=== PATIENT | male | born 1940 | race Caucasian/White ===

== ENCOUNTER 2018-08-09 06:45 | Inpatient (IN) | payer MEDICARE, OTHER ==
[~2018-08-09] VITALS: Ht 175.3 cm; Wt 78.0 kg
--- OUTSIDE RECORDS SUMMARY | ~2018-08-09 | XMS | Clinical Summary ---
Demographics + + + | Address | [address] | | | [place] [address] | + + + | Home Phone | | + + + | Preferred Language | Unknown | + + + | Marital Status | | + + + | Protestant Affiliation | 1028 | + + + | Race | Unknown | + + + | Ethnic Group | Unknown | + + + Author + + + | Author | [facility] | | | and [place] | + + + | Organization | [facility] | | | and [place] | + + + | Address | Unknown | + + + | Phone | Unavailable | + + + Support + + + + + | Name | Relationship | Address | Phone | + + + + + | Nithya Roque | ECON | [address] | | | | | [place] | | | | | [address] | | + + + + + Care Team Providers + +------+ + | Care Special Events Director Name | Role | Phone | + +------+ + PP | Unavailable | + +------+ + Allergies Not on File Current Medications Not on file Active Problems Not on file Social History + +-------+ +--------+------+ | Tobacco Use | Types | Packs/Day | Years | Date | | | | | Used | | + +-------+ +--------+------+ | Never Assessed | | | | | + +-------+ +--------+------+ + + + | Sex Assigned at | Date Recorded | | | | + + + | Not on file | | + + + Plan of Treatment + + + + + | Health Maintenance | Due Date | Last Done | Comments | + + + + + | Vaccine: | | | | | Dtap/Tdap/Td (1 - | 9 | | | | Tdap) | | | | + + + + + | Vaccine: Zoster (1 | | | | | of 2) | 0 | | | + + + + + | Vaccine: | | | | | Pneumococcal 65+ | 5 | | | | Low/Medium Risk (1 | | | | | of 2 - PCV13) | | | | + + + + + | Vaccine: Influenza | | | | | (#1) | 8 | | | + + + + + Results Not on filefrom Last 3 Months"
--- OUTSIDE RECORDS SUMMARY | ~2018-08-09 | XMS | Clinical Summary ---
Demographics + + + | Address | [address] | | | [place] [address] | + + + | Home Phone | | + + + | Preferred Language | Unknown | + + + | Marital Status | Single | + + + | Denominational Affiliation | Unknown | + + + | Race | Unknown | + + + | Ethnic Group | Other Race | + + + Author + + + | Author | NON REVENUE LOCATIONS | + + + | Organization | NON REVENUE LOCATIONS | + + + | Address | Unknown | + + + | Phone | Unavailable | + + + Support + + +---------+ + | Name | Relationship | Address | Phone | + + +---------+ + | NONE,NONE | ECON | Unknown | Unavailable | + + +---------+ + Care Team Providers + +------+ + | Care Electronic Pagination System Operator Name | Role | Phone | + +------+ + PP | Unavailable | + +------+ + Source Comments FEI is fully live on both [facility] and [facility] In[facility] Allergies Not on File Current Medications Not [...] | + + + + + | Pneumococcal (Adult) | | | | | (1 of 2 - PCV13) | 5 | | | + + + + + | Influenza (Flu) | | | | | vaccination (#1) | 8 | | | + + + + + Results Not on filefrom Last 3 Months Insurance + +--------+ +--------+ + + | Payer | Benefi | Subscriber | Type | Phone | Address | | | t Plan | ID | | | | | | / | | | | | | | Group | | | | | + +--------+ +--------+ + + | MEDICARE | MEDICA | xxxxxxxxxx | Medica | +- | [address] | | | RE A & | | re | [phone] | [place] [address] | | | B | | | | | + +--------+ +--------+ + + | JOON | RAJWINDER | [phone] | Fern[place] | [phone] | | | [place] | | ity | [phone] | | | | | | | | | | | HEALTH | | | | | | | NET | | | | | + +--------+ +--------+ + + + +--------+ +--------+-------+ + | Guarantor Name | Accoun | Relation to | Date | Phone | Billing Address | | | t Type | Patient | of | | | | | | | | | | + +--------+ +--------+-------+ + | CHRIS GUSTAFSON | Person | Self [birth year] | [address] | | | al/Fam | | 1941 | | [place] [address] | | | [place] | | | | | + +--------+ +--------+-------+ +"
--- OUTSIDE RECORDS SUMMARY | ~2018-08-09 | XMS | Encounter Summary ---
Demographics + + + | Address | [address] | | | [place] [address] | + + + | Home Phone | | + + + | Preferred Language | Unknown | + + + | Marital Status | | + + + | Zoroastrian Affiliation | 1028 | + + + | Race | Unknown | + + + | Ethnic Group | Unknown | + + + Author + + + | Author | [facility] | + + + | Organization | [facility] | + + + | Address | Unknown | + + + | Phone | Unavailable | + + + Support + + + + + | Name | Relationship | Address | Phone | + + + + + | Nithya Roque | ECON | [address] | | | | | [place] | | | | | [address] | | + + + + + Care Team Providers + +------+ + | Care Sand Polisher Name | Role | Phone | + +------+ + | Mary Jane Isabel MD | PCP | | + +------+ + Reason for Referral Consultation (Routine) + + + + + + + | Status | Reason | Specialty | Diagnoses / | Referred By | Referred To | | | | | Procedures | Contact | Contact | + + + + + + + | Authorized | Specialty | Sleep | Diagnoses | Mary, | Lab, [facility] | | | Services | Medicine | Obstructive | Ibrahima Rojo | [facility] | | | Required | | sleep apnea | [address] | Sleep | | | | | syndrome in | [address] | Disorders | | | | | adult | Kasi F | [facility] | | | | | | [place], [place] | [facility] | | | | | | [address] | [address] | | | | | | Phone: | [address] | | | | | | [phone] | [place] | | | | | | Fax: | [address] | | | | | | [phone] | Phone: | | | | | | | [phone] | | | | | | | Fax: | | | | | | | [phone] | + + + + + + + Reason for Visit + + + | Reason | Comments | + + + | Follow-up | doppler done | + + + Encounter Details +--------+---------+ + + + | Date | Type | Department | Care Team | Description | +--------+---------+ + + + | 01/10/ | Office | [facility] | Ibrahima Hernandez Darrel, | Cerebrovascular | | 2019 | Visit | Cardiology [place] | [address] | accident (CVA) due | | | | [address] | [place], | to occlusion of | | | | [place], [place] | [place] [address] | right cerebellar | | | | [address] | [phone] | artery (HCC) | | | | [phone] | | (Primary Dx); | | | | | | Persistent atrial | | | | | | fibrillation (HCC); | | | | | | Acute [...] | | | | | | emphysema (HCC); | | | | | | Asymptomatic | | | | | | bilateral carotid | | | | | | artery stenosis | +--------+---------+ + + + Social History + +-------+ [...] + + + as of this encounter Last Filed Vital Signs + + + + | Vital Sign | Reading | Time Taken | + + + + | Blood Pressure | 134/56 | 06/02/2018 11:29 AM PST | + + + + | Pulse | 78 | 06/02/2018 11:29 AM PST | + + + + | Temperature | - | - | + + + + | Respiratory Rate | - | - | + + + + | Oxygen Saturation | 96% | 06/02/2018 11:29 AM PST | + + + + | Inhaled Oxygen | - | - | | Concentration | | | + + + + | Weight | 79.2 kg (174 lb 8 | 06/02/2018 11:29 AM PST | | | oz) | | + + + + | Height | 175.3 cm (5' 9") | 06/02/2018 11:29 AM PST | + + + + | Body Mass Index | 25.77 | 06/02/2018 11:29 AM PST | + + + + in this encounter Progress Notes Ibrahima Hernandez MD - 06/02/2018 11:15 AM PSTFormatting of this note may be different from the original. Subjective: Patient ID: Bharat Roque is a 77 y.o. male. HPI The following portions of the patient's history were reviewed and updated as appropriate an d is available elsewhere in the record: allergies, current medications, past family history, past medical history, past social history, past surgical history and problem list. Mr. Roque, accompanied by his , came to the office today for a follow-up appointment for his chronic diastolic heart failure, now persistent AFib, which likely caused his CVA. He was admitted to [facility] 02/23/18, after developing difficulty walking , veering to the right, and speech difficulties, having a hard time putting sentences togeth er that began days prior to that, 02/21/18, but only went for medical attention after 2 days, as it was getting worse. A brain CT, later an MRA showed a right cerebellar infarct consis tent with an acute event. His echocardiogram was relatively unremarkable. His EKG initiall y showed sinus rhythm, but a repeat tracing 02/24/18 showed paroxysmal atrial fibrillation. He was started on Eliquis and digoxin for rate control. He feels he has been in atrial fibr illation since then, feeling like "a butterfly" is in his chest. It has been noted on his c ardiac rehab sessions as well. He had had no previous palpitations before the stroke, since his atrial flutter ablation in 2008, which is why I had taken him off the flecainide in Nov, when he first came to me. It is not clear if this allowed the atrial fibrillation to occ ur or not, but he was started back on it. He did not think it made any difference, and fee ls it is "continuous", but he doesn't feel it anymore, and stopped the flecainide on his own .years that his atrial fibrillation is persistent now, but since he is asymptomatic and the rate is controlled, and he is on Eliquis, further attempts to restore him to sinus rhythm ar e unlikely to be successful, and we will accept this. His shortness of breath has resolved. There is no chest pain or pressure. He had only min or CAD on his recent cardiac cath 12/30/17. He felt better when he was on furosemide, and was restarted. A BNP was not done (although it was ordered), but his chest x-ray 03/24/18 showe d no pulmonary edema. Cardiomegaly was reported. PFTs 08/17/17 showed evidence of a mild obstructive defect, with no significant bronchodilat or response, consistent with emphysema. He has a history of exposure to agent orange and a [id number]-dgsm smoking history, even though he quit 25 years ago. He had a pulmonary evaluati on with Dr. Patel in February, and she did not think he had significant COPD. He was refe rred for a sleep study, as his review of systems indicated he may have obstructive sleep hospital superintendent ea syndrome, still pending. A second referral was sent to the [facility] sleep Ce nter. 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 No dizziness, lightheadedness. He has left renaldo-auricular numbness following removal of a neuroma years ago, tingling, paresthesias. He has an essential, familiar tremor of the left hand (can control it somewhat), no longer in the right hand following gammaknife surge ry 2016. -- MRA (02/24/18 - [facility]): right cerebellar infarct, mild chronic ischemic disease, atrophy -- CT (02/23/18 - [facility]): Right acute cerebellar infarct with encephalomalacia EYES: No amaurosis, diplopia, recent visual changes, cataracts or glaucoma. He needed blue samantha for Exophthalmous in the past ENT: No hearing loss, tinnitus, epistaxis, dysphagia ENDOCRINE: No history of diabetes. Has a history of Grave's Disease, initially had Hypert hyroidism, with residual Hypothyroidism following treatment with radioactive Iodine, no othe r endocrine problems. No excessive hunger, thirst. PULMONARY/SLEEP: Agent [place] exposure, 1970s. c/o Dyspnea on Exertion, denies orthopnea, paroxysmal nocturnal dyspnea. No history of asthma, but seems to have COPD/Emphysema (CXR 3 /19/18 showed hyperinflation and flattening of the diaphragms consistent with emphysematous changes). Community-acquired Pneumonia 3x. His notes loud snoring and apnea, but does have daytime somnolence. Sleep is usually refreshing. -- PFTs (08/17/17): FEV1 71%, normal FVC and minimal bronchodilator response, reduced diffus ion capacity. TLC at lower limits of normal, elevated residual volume, consistent with mild obstructive disease with minimal bronchodilator response CARDIOVASCULAR: He has had noncardiac chest pain in 2013, has chest pain/pressure with exe rtion since 08/08. No history of obstructive CAD. He had evidence of Congestive Heart Fail ure 08/07/17 (BNP 566, CXR showed "cardiogenic edema"). He has a history of Paroxysmal Atria l Flutter, underwent an Ablation in 2008. No palpitations since then. He had Paroxysmal Atri al Fibrillation 02/24/18. No history of a heart murmur, only has mild MS, denies any h/o rheu matic fever as a presence of mitral stenosis suggests that he did at some point in the past. He has Essential Hypertension, Hyperlipidemia. No edema, no claudication symptoms. No h/ o an AAA. -- Carotid U/S (05/25/18): 16-49% ICA stenoses bilaterally -- Echo (02/23/18): EF > 70%, grade 2 diastolic . RV-normal. Mild LAE, mild MR, no MS, mild TR, RVSP 35.2 mm Hg, trace PI -- Cardiac Cath (12/30/17): LM-normal. LAD-mild diffuse disease. LCx-Mall, nondominant. RCA- mild prox diffuse disease, distal moderate, PDA-large vessel, moderate proximal and mid segm ent disease, no change from 2014 -- Lexiscan Cardiolite Stress Test (03/11/18): moderately abnormal, moderate risk study, wi th mild ischemia in a rather extensive territory, encompassing the anterolateral, lateral, a nd inferolateral segments. This is suggestive of possible 2-vessel CAD, EF 65% -- Echo (08/09/17): TDS, Definity used, EF > 70%, N2 diastolic dysfunction, normal RV size, function on limited views. Mild MS, MVA 1.7 cm, peak/mean gradients 11/4 mmHg, trace MR, TR -- Cardiac Cath (09/29/13): LVEDP-31 mmHg. LM-normal. LAD-mild luminal irregularities and c alcification in the proximal-mid segments (to my review, 50% stenosis). LCx-congenitally sm all, consisting of 1 small OM. Large, dominant RCA with mild calcifications and LIs, LV sys tolic function normal -- Lipid Panel (02/24/18-on atorvastatin 20 mg): TC-99, LDL-50, HDL-25, TG-118 // ( 8): TC-143, LDL-74, HDL-42, TG-139 // (06/20/15): TC-124, LDL-51, HDL-30, TG-212 GASTROINTESTINAL: Frequent belching. No recent abdominal pain, nausea, vomiting or diarrhe a. Denies PUD, melena, hematochezia, hepatitis. RENAL/: No history of kidney disease. No dysuria, hematuria, but has BPH with urinary u rgency at times, no hesitancy or nocturia. HEMATOLOGY/ONCOLOGY: No h/o bleeding disorders, DVT, PE. He notes easy bruisability and bleeding. No history of anemia, transfusions. No history of cancer. MUSCULOSKELETAL: Gout. No myalgias, has Osteoarthritis of his spine, no arthralgias. No h istory of rheumatologic or autoimmune diseases. CUTANEOUS: No rashes, pruritus, lesions. PSYCHIATRIC: No history of depression, anxiety or other psychiatric problems. Past Medical History Diagnosis Date Agent orange exposure Atrial fibrillation (HCC) 02/24/2018 Persistent, [id number] VASc 5 BPH (benign prostatic hyperplasia) Cerebrovascular accident (CVA) (HCC) 02/21/2018 right cerebellar CVA Chronic obstructive pulmonary disease (HCC) Congestive heart failure (HCC) Diastolic heart failure Coronary artery disease 09/29/2013 mild, non-obstructive CAD Hyperlipidemia Hypertension Hypothyroidism 1994 Grave's disease, first Hyperthyroidism, now residual Hypothyroidism following treatment radioactive Iodine S/P ablation of atrial flutter 2008 Roger Jimenez MD ([place]) Past Surgical History Procedure Laterality Date BRAIN SURGERY 12/2016 gamma knife for tremors ([facility]) CARDIAC ELECTROPHYSIOLOGY MAPPING AND ABLATION 2008 Roger Jimenez MD ([place]) EYE MUSCLE SURGERY due to Grave's disease FINGER FRACTURE SURGERY HERNIA REPAIR x 3, 2 left inguinal, 1 right inguinal herniorrhaphies NEUROMA SURGERY left side of neck TIBIA FRACTURE SURGERY ORIF, left tibia, age 16 tremor essential Family History Problem Relation Age of Onset Coronary art dis Brother 68 [place] Hypertension Brother Heart disease Paternal Uncle Heart disease Paternal Uncle Heart disease Paternal Uncle Heart failure Mother Anemia Mother Hypertension Mother Diabetes type II Mother Coronary art dis Mother 3-v CABG in her 70s Stroke Father 74 Social History Substance Use Topics Smoking status: Former Smoker Packs/day: 1.00 Years: 35.00 Quit date: 12/01/1992 Smokeless tobacco: Never Used Alcohol use 0.0 oz/week 1 - 2 Glasses of wine, 1 - 2 Cans of beer, 1 - 2 Shots of liquor per week Comment: occasionally Allergies Allergen Reactions Carvedilol Other (See Comments) "olu horses" in legs Levaquin [Levofloxacin] Other (See Comments) Ruptured tendon Current Outpatient Prescriptions: allopurinol (ZYLOPRIM) 100 MG tablet, Take 100 mg by mouth daily., Disp: , Rfl: atorvastatin (LIPITOR) 20 MG tablet, Take 40 mg by mouth nightly., Disp: , Rfl: digoxin (LANOXIN) 0.25 MG tablet, Take 0.25 mg by mouth daily., Disp: , Rfl: ELIQUIS 5 MG tablet, Take 5 mg by mouth 2 (two) times daily., Disp: , Rfl: finasteride (PROSCAR) 5 MG tablet, Take 5 mg by mouth daily., Disp: , Rfl: fish oil-omega-3 fatty acids 1000 MG capsule, Take 1 g by mouth daily., Disp: , Rfl: furosemide (LASIX) 20 MG tablet, Take 1 tablet by mouth daily., Disp: 90 tablet, Rfl: 3 Multiple Vitamin (MULTIVITAMIN) tablet, Take 1 tablet by mouth daily., Disp: , Rfl: nitroGLYCERIN (NITROSTAT) 0.4 MG SL tablet, Place 1 tablet under the tongue every 5 (f abbey) minutes as needed for Chest pain., Disp: 90 tablet, Rfl: 2 omeprazole (PRILOSEC) 40 MG capsule, Take 1 capsule by mouth every morning before ross kfast., Disp: 30 capsule, Rfl: 11 tamsulosin (FLOMAX) 0.4 MG capsule, Take 1 capsule by mouth daily., Disp: , Rfl: TIROSINT 75 MCG CAPS, Take 75 mcg by mouth daily. Take with 88 mcg capsules for a tota l of 163 mcg daily., Disp: , Rfl: TIROSINT 88 MCG CAPS, Take 88 mcg by mouth daily. Take with 75 mcg capsules for a tota l of 163 mcg daily., Disp: , Rfl: Objective: Physical Exam BP 134/56 (BP Location: Left upper arm, Patient Position: Sitting) | Pulse 78 | Ht 1.753 m (5' 9") | Wt 79.2 kg (174 lb 8 oz) | SpO2 96% | BMI 25.77 kg/m GENERAL: Well developed, well nourished, in no distress. Appears approximately stated age . HEENT: Normocephalic, atraumatic. EYES: Exophthalmos. PERRL, sclerae anicteric, no xanthelsasmas MOUTH: Oral mucosae moist, dentition adequate, no lesions noted NECK: No JVD, lymphadenopathy, thyromegaly, bruits. Carotid pulses are 2+ bilaterally LUNGS: Clear bilaterally, with no rales, rhonchi or wheezing noted, respirations unlabored HEART: Nondisplaced PMI, regular rate and rhythm, S1, S2 normal. No murmurs, rubs or gall ops noted. ABDOMEN: Soft, nontender, no organomegaly, masses or bruits. Bowel sounds are normal in a ll 4 quadrants. The abdominal aortic pulsation is not palpable. EXTREMITIES: No edema. Radial pulses 2+ bilaterally. Femoral pulses are 2+ bilaterally wi thout bruits. DP and PT pulses are 2+ bilaterally. SKIN: Warm and dry, capillary refill is normal, no lesions. NEUROLOGIC: Awake, alert and oriented x 3. Mild expressive aphasia. No focal motor defici ts. He has a marked left hand tremor. There is a minimal tremor on the right side. PSYCHIATRIC: Appropriate, affect appears normal Assessment and Plan: Bharat was seen today for follow-up. Cerebrovascular accident (CVA) due to occlusion of right cerebellar artery (HCC) Persistent atrial fibrillation (HCC) Acute on chronic diastolic congestive heart failure (HCC) S/P ablation of atrial flutter Essential hypertension SOB (shortness of breath) on exertion Obstructive sleep apnea syndrome in adult Centrilobular emphysema (HCC) Asymptomatic bilateral carotid artery stenosis in this encounter Plan of Treatment +--------+---------+ + + + | Date | Type | Specialty | Care Team | Description | +--------+---------+ + + + | 11/22/ | Office | Cardiology | Ibrahima Hernandez, | | | 2019 | Visit | | MD [address] | | | | | | [place], | | | | | | [place] [address] | | | | | | [phone] | | | | | | | | +--------+---------+ + + + + +--------+ + + | Name | Priori | Associated Diagnoses | Order Schedule | | | ty | | | + +--------+ + + | Ambulatory referral to Sleep | Routin | Obstructive sleep | Ordered: 06/02/2018 | | Studies | e | apnea syndrome in | | | | | adult | | + +--------+ + + as of this encounter Visit Diagnoses + + | Diagnosis | + + | Cerebrovascular accident (CVA) due to occlusion of right cerebellar artery (HCC) - | | Primary | + + | Persistent atrial fibrillation (HCC) | + + | Atrial fibrillation | + + | Acute on chronic diastolic congestive heart failure (HCC) | + + | Acute on chronic diastolic heart failure | + + | S/P ablation of atrial flutter | + + | Other postprocedural status | + + | Essential hypertension | + + | Unspecified essential hypertension | + + | SOB (shortness of breath) on exertion | + + | Shortness of breath | + + | Obstructive sleep apnea syndrome in adult | + + | Obstructive sleep apnea (adult) (pediatric) | + + | Centrilobular emphysema (HCC) | + + | Other emphysema | + + | Asymptomatic bilateral carotid artery stenosis | + + | Occlusion and stenosis of multiple and bilateral precerebral arteries without mention | | of cerebral infarction | + +
--- OUTSIDE RECORDS SUMMARY | ~2018-08-09 | XMS | Encounter Summary ---
Demographics + + + | Address | [address] | | | [place] [address] | + + + | Home Phone | | + + + | Preferred Language | Unknown | + + + | Marital Status | | + + + | Restoration Affiliation | 1028 | + + + | Race | Unknown | + + + | Ethnic Group | Unknown | + + + Author + + + | Author | [facility] | + + + | Organization | [facility] | + + + | Address | Unknown | + + + | Phone | Unavailable | + + + Support + + + + + | Name | Relationship | Address | Phone | + + + + + | Nithya Roque | ECON | [address] | | | | | [place] | | | | | [address] | | + + + + + Care Team Providers + +------+ + | Care Purchase Analyst Name | Role | Phone | + [...] | | | | | | [place] | | | | | | [address] | | | | | | [phone] | | | +--------+ + + + [...] | | | | | | [place] [address] | | | | | | [phone] | | | | | | | | +--------+---------+ + + + as of this encounter Visit Diagnoses Not on filein this encounter"
--- OUTSIDE RECORDS SUMMARY | ~2018-08-09 | XMS | Encounter Summary ---
Demographics + + + | Address | [address] | | | [place] [address] | + + + | Home Phone | | + + + | Preferred Language | Unknown | + + + | Marital Status | | + + + | Baptism Affiliation | 1028 | + + + | Race | Unknown | + + + | Ethnic Group | Unknown | + + + Author + + + | Author | [facility] | + + + | Organization | [facility] | + + + | Address | Unknown | + + + | Phone | Unavailable | + + + Support + + + + + | Name | Relationship | Address | Phone | + + + + + | Nithya Roque | ECON | [address] | | | | | [place] | | | | | [address] | | + + + + + Care Team Providers + +------+ + | Care Caption Writer Name | Role | Phone | + +------+ + | Mary Jane Isabel MD | PCP | | + +------+ + Reason for Visit +--------+ + | Reason | Comments | +--------+ + | Other | [facility] discharge summary and imaging | | | reports 02/2018 | +--------+ + Encounter Details +--------+ + + + + | Date | Type | Department | Care Team | Description | +--------+ + + + + | 06/28/ | Documentati | Johanna | Sabrina Cope, | Other Gum[facility] Rowe | | 2019 | on Only | [facility] | [place] | [facility] | | | | [address] | | discharge summary | | | | [place] | | and imaging reports | | | | [address] | | 02/2018) | | | | [phone] | | | +--------+ + + + [...] | | | | | | [place] [address] | | | | | | [phone] | | | | | | | | +--------+---------+ + + + as of this encounter Visit Diagnoses Not on filein this encounter"
--- OUTSIDE RECORDS SUMMARY | ~2018-08-09 | XMS | Encounter Summary ---
Demographics + + + | Address | [address] | | | [place] [address] | + + + | Home Phone [...] + | Author | [facility] | + + + | Organization | [facility] | + + + | Address | Unknown | + + + | Phone | Unavailable | + + + Support + + + + + | Name | Relationship | Address | Phone | + + + + + | Nithya Roque | ECON | [address] [facility] | | | | | [place] | | | | | [address] | | + + + + + Care Team Providers + +------+ + | Care Food Checker Name | Role | Phone | + +------+ + | Mary Jane Isabel MD | PCP | | + +------+ + Reason for Visit + + + | Reason | Comments | + + + | Neurologic Problem | Evalution for cerebral infarction | + + + Consult and Treat (Routine) + +--------+ + + + + | Status | Reason | Specialty | Diagnoses / | Referred By | Referred To | | | | | Procedures | Contact | Contact | + +--------+ + + + + | Authorized | | Neurology | Diagnoses | Maame, | Gage, | | | | | Other | Mary Jane Hernandez, | MD Dottie | | | | | cerebral | [address] | [address] | | | | | infarction | [address] | [address] | | | | | ([facility]) | [place], | [place], [place] | | | | | | [place] [address] | [address] Phone: | | | | | | Phone: | [phone] | | | | | | [phone] | Fax: | | | | | | Fax: | [phone] | | | | | | [phone] | | + +--------+ + + + + Encounter Details +--------+---------+ + + + | Date | Type | Department | Care Team | Description | +--------+---------+ + + + | 06/23/ | Office | [facility] | Dottie Almonte, | Ischemic stroke | | 2019 | Visit | [facility] | MD [address] | ([facility]) (Primary Dx); | | | | [address] | [facility] [place] | Imbalance | | | | [place], [place] | [address] | | | | | [address] | | | | | | [phone] | | | +--------+---------+ + + + Social History [...] + + in this encounter Progress Notes Dottie Almonte MD - 06/23/2018 11:30 AM PSTFormatting of this note may be different from the original. Subjective: Patient ID: Bharat Roque is a 77 y.o. male. HPI Thank you for asking us to participate in your patient's care. As you know, Bharat Roque is a 77 y.o. right handed male who presents today for ev aluation after a stroke. New vitis. Previous neurologist: Does not remember the name of his neurologist. S/p Gamma knife for tremor. - Onset, context and course: 02/21/2018; sudden onset of imbalance and poor coordination, th is got worse over the next few days to include dysphasia, with no new weakness or numbness ( chronic weakness of right arm due to shoulder pain). He was on ASA. This was changed to ASA and Plavix then to Eliquis due to A-Fib per patient report / cardiology note. - Localization, quality and severity: As above. - Duration: Was constant. He is doing better, balance is back to normal and speech is better but still at times hard to remember certain words. Currently he is on statin and Eliquis. Echo from 02/23/18: 1. No source of emboli or other structural/functional cardiac abnormalities seen that would suggest a cardiac cause of his CVA. 2. Left ventricular systolic function is hyperdynamic with an estimated EF of >70%. 3. Pseudonormal LV diastolic filling pattern, consistent with elevated LA pressure and mode rate dysfunction (Grade II). 4. The right ventricle is normal in size and function. 5. The left atrium is mildly enlarged. 6. No significant valvular abnormalities are noted. 7. There are mild changes noted in comparison to the previous echocardiographic study, done 08/09/17, as noted below. Echo from 03/15/18: 1. Left ventricular systolic function is hyperdynamic with an estimated EF of >70%. 2. The right ventricle is normal in size and function. 3. The left atrium is mildly enlarged. 4. There is mild mitral stenosis. 5. There are minor changes noted in comparison to previous echocardiographic studies, done 02/23/18 and 08/09/17. Carotid US from May, 2018: 1. Mild disease of the right internal carotid artery. 2. Mild disease of the left internal carotid artery. EKG and telemetry: Unavailable. Brain imaging: per cardiology not: MRI showed right cerebellar stroke. EKG trace from 02/24/18 >> A-fib. Past Medical History Diagnosis Date Agent orange exposure Atrial fibrillation (HCC) 02/24/2018 Persistent, [id number] VASc 5 BPH (benign prostatic hyperplasia) Cerebrovascular accident (CVA) (HCC) 02/21/2018 right cerebellar CVA Chronic obstructive pulmonary disease (HCC) Congestive heart failure (HCC) Diastolic heart failure Coronary artery disease 09/29/2013 mild, non-obstructive CAD Hyperlipidemia Hypertension Hypothyroidism 1994 Grave's disease, first Hyperthyroidism, now residual Hypothyroidism following treatment wi radioactive Iodine S/P ablation of atrial flutter 2008 Roger Jimenez MD ([place]) Family History Problem Relation Age of Onset Coronary art dis Brother 68 [place] Hypertension Brother Heart disease Paternal Uncle Heart disease Paternal Uncle Heart disease Paternal Uncle Heart failure Mother Anemia Mother Hypertension Mother Diabetes type II Mother Coronary art dis Mother 3-v CABG in her 70s Stroke Father 74 Social History Social History Marital status: Spouse name: N/A Number of children: N/A Years of education: N/A Occupational History 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[employer], 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 Review of Systems The patient reports activity change, appetite change, fatigue, tinnitus, visual disturbance , and bruises. All other system were reviewed and are negative. Objective: Physical Exam Vitals: Vitals: 06/23/18 1123 BP: 155/72 Pulse: 69 SpO2: 97% General: Well developed, in no acute distress Neck: Supple, unable to appreciate bruits. Heart: S1, S2. Peripheral vascular system: No swelling by observation with palpable pulse in upper extremi ties. Detailed Neurologic Exam Speech: Is normal; fluent and spontaneous with normal naming and repetition. Cognition: The patient is oriented to person, place, and time; recent and remote memory is intact with normal attention span, concentration, and fund of knowledge. Cranial Nerves: At this time, the pupils are equal, round, and reactive to light. Visual fi elds are full to finger confrontation. Extraocular movements are intact. Trigeminal sensatio n is intact and the muscles of mastication are normal. The face is symmetric. Hearing is sym metric bilaterally to fingers rubbing. The palate elevates in the midline. Voice is normal. Shoulder shrug is normal. The tongue has normal motion without fasciculations. Coordination: Normal finger to nose. Gait: Hard to tandem. Observation: No asymmetry, or involuntary movements noted. Strength: Strength is 5/5 in the upper and lower limbs. Light Touch: Normal light touch sensation in upper and lower extremities. DTR's: Deep tendon reflexes in the upper extremities and knees are normal bilaterally. Assessment and Plan: Reason for visit: Evaluation and management of stroke. With: . Impression: 1- Imbalance, due to right cerebellar stroke in the setting of A-fib. 2- Tremor, managed by neurology in [place]. 3- HTN, and A-fib on AC. Plan: 1- The differential diagnosis and the necessary work up were discussed with the patient in detail. 2- I will request the previous work up (D/C summary,imaging and EKG) to be sent to my offic e for review. I reviewed the available medical record and summarized it in my HPI. 3- We discussed the safety issues in detail including safe environment. No falls. 4- For #1, agree with AC, and statin for secondary prophylaxis. Good control of risk factor s. 5- For #2, he will follow with his neurologist in [place] in Jun, 2018. 6- I covered with the patient all side effects of the regimen and the interaction with othe r medications (risk of bleeding). Patient understands and agrees to proceed with the regimen / plan. 7- Risk factors modification per PCP and cardiology. The patient was instructed to follow u p with PCP in regards to the non neurological symptoms listed on the review of symptoms. 8- Patient would like to follow with his PCP and to RTC as needed. However, patient was ins tructed to call with any concern, if symptoms are worsening, not improving or if any side ef fects related to regimen. in this encounter Plan of Treatment +--------+---------+ + + + | Date | Type | Specialty | Care Team | Description | +--------+---------+ + + + | 11/22/ | Office | Cardiology | Ibrahima Hernandez, | | | 2019 | Visit | | MD [address] | | | | | | [place], | | | | | | [place] [address] | | | | | | [phone] | | | | | | | | +--------+---------+ + + + as of this encounter Visit Diagnoses + + | Diagnosis | + + | Ischemic stroke (HCC) - Primary | + + | Imbalance | + + | Abnormality of gait | + +
--- OUTSIDE RECORDS SUMMARY | ~2018-08-09 | XMS | Clinical Summary ---
Demographics + + + | Address | [address] | | | [place] [address] | + + + | Home Phone | | + + + | Preferred Language | Unknown | + + + | Marital Status | | + + + | Congregation Affiliation | 1028 | + + + | Race | Unknown | + + + | Ethnic Group | Unknown | + + + Author + + + | Author | [facility] [employer] | + + + | Organization | [facility] [employer] [facility] | + + + | Address | Unknown | + + + | Phone | Unavailable | + + + Support + + + + + | Name | Relationship | Address | Phone | + + + + + | Nithya Roque | ECON | [address] | | | | | [place] | | | | | [address] | | + + + + + Care Team Providers + +------+ + | Care Animal Skinner Name | Role | Phone | + [...] + + + | Cerebrovascular accident (CVA) ([facility]) | 02/21/2018 | + [...] | Anh Dodd, | Other (EKG from [facility] | | 2019 | on Only | | [place] | Leoncio) | +--------+ + + + + | 06/28/ | Documentati | | Sabrina Cope, | Other (On License Of [facility] | | 2018 | on Only | | [place] | [facility] | | | | | | discharge summary | | | | | | and imaging reports | | | | | | 02/2018) | +--------+ + + + + | 06/23/ | Office | | Dottie Almonte, | Ischemic stroke | | 2018 | Visit | | MD | ([facility]) (Primary Dx); | | [...] | | | | | | artery ([facility]) | | | | | | (Primary Dx); | | | | | | Persistent atrial | | | | | | fibrillation ([facility]); | | | | [...] | | | | | | emphysema ([facility]); | | | | [...] Coronary art dis | Brother | | [place] | + + +------+ + | Hypertension [...] | | | | | | [place] [address] | | | | | | [phone] | | | | | | | [...] VERT PS: 57.25 cm/s | | | Legal Investigator: APRIL Authenticated by: JEEVAN VIIERA MD Report | | | Date/Time: -- 92_[id number]:40:21 | | + + + + + | Procedure Note | + + | Case, Rad Results In - 05/25/2018 8:40 PM PST Patient Name: Ronnie ROQUE of | | : 1940Accession: [id number] Physician: JEEVAN VIEIRA MD | | INDICATIONS [...] JEEVAN VIEIRA | | MDReport Date/Time: -- 81_[id number]:40:21IMPRESSION:1. Mild disease of the right | | [...] |VERT PS: 57.25 cm/s | | | |Legal Investigator: DH | |Authenticated by: JEEVAN VIEIRA MD | |Report Date/Time: -- 11_[id number]:40:21 | | | |IMPRESSION: | |1. Mild disease of the right internal carotid artery. | |2. Mild disease of the left internal carotid artery. | + + + + + + + | Performing | Address | City/State/Zipcode | Phone Number | | Organization | | | | + + + + + | [facility] | [address] | [place] [address] | | + + + + + [...] +------+-------+ + | MEDICARE | MEDICA | [id number] | | | [address] | | | RE | | | | [place] [address] | | | IP-OP | | | | | + +--------+ +------+-------+ + | - WPS - | TRICAR | [id number] | | | [address] [address] | | | [place] | | | | [place] | | | LIFE | | | | [address] | + +--------+ +------+-------+ + + +--------+ +--------+ + + | Guarantor Name | Accoun | Relation to | Date | Phone | Billing Address | | | t Type | Patient | of | | | | | | | | | | + +--------+ +--------+ + + | BHARAT ROQUE | Person | Self [birth year] Home: | [facility] | | [place] | al/Fam | | 1941 | [phone] | [address] [place], | | | [place] | | | [address] | [place] [address] | + +--------+ +--------+ + +
[~2018-08-09 06:45] MED LIST: ALLOPURINOL100 MG PO; DIGOXIN250 MCG PO; ELIQUIS5 MG PO; FISH OIL 1,0001 EAC3 PO; FUROSEMIDE20 MG PO; LEVOTHYROXINE150 MCG PO; LEVOXYL75 MCG PO; LIPITOR20 MG PO; MULTIVITAMINS1 EAC8 PO; NITROGLYCERIN0.4 MG SL; PROSCAR5 MG PO; RANITIDINE HCL150 MG PO; TAMSULOSIN HCL0.4 MG PO
--- NOTE | 2018-08-09 12:53 | NUR ---
08/09/18 1253 Sheets,Fang 1239 PT ARRIVED TO PACU ON 8L VIA MASK, RESP EVEN AND UNLABORED. PT REACTIVE TO TACTILE STIMULI AND DENIES PAIN. CRITICAL CARE EDUCATOR NOTED ELEVATED HR, 87-120. 1246 PT CONTINUES TO WAKE OFF AND ON. O2 MASK REMVOED. PT REACTIVE TO VERBAL STIMULI AND PT DENIES NAUSEA AND PAIN. PT REPORTS NORMAL FEELING IN HAND. RN ENCOURAGES DEEP BREATHING. HR 75-95.
--- NOTE | 2018-08-09 14:29 | NUR ---
PT TO FLOOR VIA STRETCHER WITH KELIN BONILLA. PT AWAKE AND ABLE TO SCOOT SELF TO BED. GIVEN WATER AND JELLO. NO NAUSEA OR PAIN ATT. CMS INTACT. PT WIGGLING FINGERS. AND DAUGHTER IN ROOM. VS STABLE.
--- NOTE | 2018-08-09 14:31 | NUR ---
PT IS ALERT, ORIENTED AND SUPPORTED BY HIS . PT IS [place], USUALLY WOULD LOOK TO FOR HELP IF HE DID NOT HEAR. BOTH PLEASANT, HAD FEW QUESTIONS. OR STAFF NEED TO SEE PT, EXTENDED A BLESSING WILL FOLLOW NEEDED
--- NOTE | 2018-08-09 15:01 | NUR ---
VITALS TAKEN AND STABLE. CRYO CUFF TO RIGHT SHOULDER. PT REPORTS SMALL AMOUNT OF TINGLING TO RIGHT FINGERS. PULSE +2, EXTREMITY WARM, PT ABLE TO WIGLE FINGERS. DENIES PAIN AT THIS TIME. DRESSING WITH SOME OLD SHADOWING. SCD'S IN PLACE. LR AT 125ML/HR INFUSING. PT IS RESTING NOW WITH EYES CLOSED. CALL LIGHT IN REACH. DENIES NEEDS.
--- NOTE | 2018-08-09 15:55 | NUR ---
PT LYING IN BED WITH HOB ELEVATED, EYES CLOSED, WAKES TO VERBAL STIMULI. ASSESSMENT SAME PREVIOUS, CRYO CUFF IN PLACE, DRESSING C/D/I, SCD'S IN PLACE, PT DENIES PAIN, CALL LIGHT IN REACH.
--- NOTE | 2018-08-09 16:55 | NUR ---
VITAL SIGNS TAKEN, WNL. DENIES PAIN/N/V. ABLE TO WIGGLE FINGERS. REPORTS STILL SOME TINGLING. PULSE +1 EXTREMITY WARM CAP REFILL 2 SEC. DINNER ORDERED. CALL LIGHT IN REACH. AT BEDSIDE.
--- NOTE | 2018-08-09 19:03 | NUR ---
RECIEVED BEDSIDE REPORT FROM ASHER NEVILLE. PATIENT LAYING AWAKE IN BED WITH FAMILY AT BEDSIDE. SMALL AMOUNT OF SHADOWING PRESENT ON DRESSING. CRYOCUFF IN PLACE ON RIGHT SHOULDER. SCDs IN PLACE. IV FLUIDS INFUSING PER MAR ORDER. WHITE BOARD UPDATE. CALL LIGHT WITHIN REACH. NO MORE NEEDS AT THIS TIME.
--- NOTE | 2018-08-09 19:31 | NUR ---
NOTIFED BY MEDICAL LAB TECHNICIAN THAT PATIENT BLADDER SCAN WAS 182 ML. MEDICAL LAB TECHNICIAN'S HAVE PATIENT UP TO RESTROOM AT THIS TIME.
--- NOTE | 2018-08-09 20:10 | NUR ---
NOTIFIED DR. MONTANEZ ABOUT PATIENT'S LOW URINE OUTPUT. DR. MONTANEZ STATED NO NEW ORDERS. HOWEVER, THIS RN NOTIFIED DR. MONTANEZ OF CRISTOFER'S POTENTIAL ORDERS IF DR. MONTANEZ WOULD LIKE TO HAVE DR. CLEVELAND INTERVENE. DR. MONTANEZ WAS AGREEABLE WITH DR. CLEVELAND ORDERS AND WOULD LIKE TO HAVE A HERNANDEZ CATHETER PLACED IF PATIENT'S BLADDER IS GREATER THAN 500 ML AND TO REMOVE CATHETER AT 0600. DR. MONTANEZ ALSO ORDERED THAT PATIENT RECIEVE AN ADDITIONAL DOSE OF FLOMAX 0.4MG FOR TONIGHT AND TO CONTINUE WITH NORMAL FLOMAX SCHEDULE IN THE MORNING. VERIFIED ORDERS THROUGHT READ BACK METHOD.
--- NOTE | 2018-08-09 20:30 | NUR ---
DR CLEVELAND HERE @1999 TO CONSULT ON PT, PER DR MONTANEZ REQUEST. AWARE OF THE LOW URINE OUTPUT, GAVE ORDERS R/T TO LOW OUTPUT BUT TO CONTACT DR MONTANEZ PRIOR. THIS WAS DONE, PER PT PRIMARY RN MARINA.
--- NOTE | 2018-08-09 20:49 | NUR ---
rounded on patient for scheduled medication administration per mar. patient resting in bed watching tv with at bedside. cpox, wnl. call light within reach. no more needs at this time.
--- NOTE | 2018-08-09 21:26 | NUR ---
ASSESSMENT COMPLETE. PATIENT DENIES PAIN, SOB OR DIFFICULTY BREATHING. PROVIDED EDUCATION TO PATIENT ABOUT PROPER PAIN MANAGEMENT, PATIENT EXPRESSED UNDERSTANDING. GENERALIZED SWELLING NOTED IN RLE, BLE ELEVATED ON PILLOW. HEAD OF BED ELEVATED GREATER THAN 30 DEGREES. SMALL AMOUNT OF SHADOWING PRESENT ON OPSITE, DRESSING OTHERWISE CDI, NO NEW DRAINAGE NOTED. PATIENT DENIES CALF TENDERNESS. PATIENT DENIES NAUSEA. TREMORS NOTED IN LEFT HAND, PATIENT STATES THIS IS CHRONIC FOR HIM. PATIENT REPORTS TINGING IN RIGHT HAND, CAPILLARY REFILL LESS THAN 2 SECONDS, WARM TO TOUCH. ASSESSED SENSATION OF RIGHT SHOULDER AREA ALONG CHEST, SLIGHT NUMBNESS STILL PRESENT. CALL LIGHT WITHIN REACH. NO MORE NEEDS AT THIS TIME. CRYOCUFF IN PLACE.
--- NOTE | 2018-08-09 22:48 | NUR ---
ROUNDED ON PATIENT SITTING ON SIDE OF BED WITH FAMILY NEAR BY AND SENIOR SQL SERVER DATABASE DEVELOPER AT BEDSIDE. SCHEDULED MEDICATION ADMINISTRATION ADMINISTERED PER MAR ORDER. PATIENT REPORTS MORE TINGLING IN FINGER TIPS THAN BEFORE. CALL LIGHT WITHIN REACH. NO MORE NEEDS AT THIS TIME.
--- NOTE | 2018-08-09 23:45 | NUR ---
ROUNDED ON PATIENT RESTING IN BED WITH EYES CLOSED, RESPIROATRY RATE IS EVEN AND UNLABORED. 1L VIA NC APPLIED TO MAINTAIN O2 SATS PER ORDER. CALL LIGHT WITHN REACH. FAMILY STILL AT BEDSIDE.
--- NOTE | 2018-08-10 02:30 | NUR ---
ASSESSMENT COMPLETE. MEDICATION ADMINISTRATION COMPLETE PER JUL ORDER. PATIENT REPORTS "1/10" PAIN IN RIGHT SHOULDER, PRN PAIN MEDICATION PROVIDED WITH CRACKERS. PATIENT ABLE TO VOID 115, BLADDER SCANNED PATIENT TO BE 227, PATIENT VOIDED 100 AFTER BLADDER SCAN. FINE CRACKLES NOTED IN RLL, ENCOURAGED PATIENT TO USE IS, PATIENT DEMONSTRATED UNDERSTANDING. PATIENT REPORTS SLIGHT NUMBNESS IN RIGHT SHOULDER/CHEST REGION, HOWEVER LEVEL OF NUMBNESS APPEARS LESS THAN BEFORE. PATIENT REPORTS SENSATION IN RIGHT FINGERS FEEL LIKE THEY HAVE "FALLEN ASLEEP", CAPILLARY REFILL LESS THAN 2 SECONDS. PATIENT DENIES CHEST PAIN, SOB, OR DIFFICULTY BREATHING. REFER TO ASSESSMENT FOR SHADOWING ON DRESSING, OTHERWISE DRESSING IS CDI. FRESH ICE PLACED IN CRYOCUFF. SCDS IN PLACE. IV FLUIDS INFUSING PER MAR ORDER. CALL LIGHT WITHIN REACH. RIGHT ARMS STILL IN SLING. NO MORE NEEDS AT THIS TIME.
--- NOTE | 2018-08-10 02:36 | NUR ---
cryo cuff refilled.
--- NOTE | 2018-08-10 04:02 | NUR ---
ROUNDED ON PATIENT RESTING IN BED WITH EYES CLOSED, RESPIRATORY RATE IS EVEN AND UNLABORED. CALL LIGHT WITHIN REACH.
--- NOTE | 2018-08-10 05:30 | NUR ---
PATIENT SLEPT ON AND OFF THROUGHOUT THE NIGHT. LOW URINE OUTPUT AT BEGINNING OF SHIFT. X1 FLUID BOLUS. URINE OUTPUT INCREASED AFTER SUCH INTERVENTION. REGULAR DIET. O2 APPLIED AT NIGHT TO MAINTAIN O2 SATS PER ORDER. HEAD OF BED ELEVATED GREATER THAN [address] IS AT BEDSIDE. 50 CENT SIZE AMOUNT OF DRAINAGE NOTED ON MEPLEX, DRESSING IS INTACT. RIGHT ARM IN SLING. CRYOCUFF IN PLACE ON RIGHT ARM. BLE ELEVATED ON X1 PILLOW. ABX X1. PRN PAIN MEDICATION PER JUL ORDER X1. AT BEDSIDE THROUGHOUT THE NIGHT. IV FLUIDS INFUSING PER MAR ORDER. SBA-1PA.
--- NOTE | 2018-08-10 06:40 | NUR ---
ROUNDED ON PATIENT LAYING AWAKE IN BED WITH AT BEDSIDE. PATIENT REPORTS SHOULDER FEELS LIKE IT WAS "PUNCH", DENIED WANTING PRN PAIN MEDICATION AT THIS TIME. DRESSING ASSESSED, TWO 50 CENT PIECE SIZED DRAINAGE/SHADOWING NOTED ON MEPLEX, DRAINAGE OUTLINED. SCHEDULED MEDICATION ADMINISTERED PER MAR ORDER. IV FLUIDS INFUSING PER MAR ORDER. CALL LIGHT WITHIN REACH. NO MORE NEEDS AT THIS TIME.
--- NOTE | 2018-08-10 08:08 | NUR ---
RN ASSISTED PATIENT UP INTO BATHROOM. PATIENT BACK IN BED AT THIS TIME, IN ROOM. PATIENT'S ASSISTED HIM WITH AM CARE. PATIENT CALL LIGHT IN REACH. NO OTHER NEEDS AT THIS TIME.
--- NOTE | 2018-08-10 09:15 | NUR ---
PT STATES HE WANTS TO DO HIS PT AT [facility]. HE STATES HE IS RETURNING HOME WHEN HE IS DC'D TODAY. HE STATES HE UNDERSTANDS HIS DX, AND HIS MEDICATIONS AND THAT WE ARE TAKING HIS PREFERENCES INTO ACCOUNT.
--- NOTE | 2018-08-10 09:23 | NUR ---
PATIENT ASSESSMENT DONE. PATIENT DENIES PAIN 1/10 OR LESS, NO NAUSEA. RIGHT SHOULDER DRESSING HAS DRAIAGE ON THE LOWER 1/3 OF MEPILEX, NOTED BY CARPET CLEANING TECHNICIAN NURSE, SHOULDER SLING IN PLACE. MORNING MEDICATIONS GIVEN, SCD'S ARE ON. PATIENT IS VOIDING WELL, DENIES OTHER NEEDS AT THIS TIME.
--- NOTE | 2018-08-10 09:31 | OR ---
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 PROCEDURE: Reverse total shoulder arthroplasty, right. ANESTHESIA: General. SPECIMENS AND COMPLICATIONS: There were no specimens or complications. BLOOD LOSS: About 200 mL. WHAT WAS DONE: The patient was taken to the operating room. After anesthesia was induced and airway secured, the patient was placed in the modified beach chair position and prepped and draped in a routine sterile fashion. An anterior deltopectoral incision was made through skin and subcutaneous tissue. Hemostasis was achieved with electrocautery. A small medial flap was created. We then basically used fingertip dissection to open the deltopectoral interval. The cephalic vein was taken laterally with the deltoid. We then released a portion of the clavipectoral fascia. We were able to palpate the muscular cutaneous nerve underneath the conjoined tendon and protected it. We then released a small portion of the remaining subscapularis off the anterior aspect of the lesser tuberosity and allowed it to retract. We then able to release the long head of the biceps. We then externally rotated the arm and the shoulder dislocated anteriorly. We marked the bicipital sulcus and created a small defect in the apex of the humeral head. This was followed with the hand reamers and we had a nice snug fit with the 14 mm reamer. We then assembled the proximal humeral cutting jig and resected the proximal humerus. We then fixed the cutting jig in place, and removed the superior aspect of the humeral head. I then used a small osteotome and rongeur to remove fairly significant osteophytes on the anterior medial and posterior aspect of the humeral head. After we Electronically Signed By: GEE RUIZ MD 08/10/18 0931 PATIENT NAME: CHRIS GUSTAFSON JR OPERATIVE REPORT DATE OF : 38 REPORT #: [id number] PHYSICIAN: GEE RUIZ MD PCP: ESTHELA DEL ROSARIO MD REPORT IS CONFIDENTIAL AND NOT TO BE RELEASED WITHOUT AUTHORIZATION [facility] [address] [place], [place] [address] Signed did this, we were able to gently retract the humerus posteriorly. We released the remaining portion of the labrum and excised it with electrocautery. This actually gave us excellent exposure of the glenoid. We then prepared the glenoid. The 38 mm sizer was placed on the glenoid and the orientation was adjusted. We then drilled via central drill guide. We then used the standard reamer and then followed it with the Piotr device. We then followed this with the central peg reamer. The 38 mm metaglene was then impacted into place and actually secured with three locking screws and one nonlocked screw. This gave us good alignment and good position. We were then able to take the glenosphere and attached to the metaglene. After it appeared to be solidly attached, we impacted it several times and tightened it additionally per the protocol. At this point, we appeared to have a solid glenosphere on a well-fixed metaglene. We then rotated the proximal humerus up into the incision. Some retractors were placed to protect the soft tissues and we then placed the alignment guide and elected to use a size 2 offset reamer. We then reamed the metaphysis. A 14 size 2 with 10 degrees of retroversion was then assembled. We gently impacted into the proximal humerus, put in the trial 3 mm poly. We reduced the shoulder. We had good alignment, good position, good motion, but this seemed to be chest a little too much laxity. We then re-dislocated the shoulder. We took out all the trials, we put in the real humeral component. We then retrial the shoulder both with a +3 and the +6 poly. We reduced the shoulder and felt the range of motion and stability were excellent. We then copiously irrigated the shoulder, injected the local anesthetic mixture and routine wound closure was accomplished. A sterile dressing was applied and he was placed in a sling. He was awakened, taken to recovery room where he arrived in stable condition. Counts were correct and antibiotic protocols were followed. MD CHARLY SalasB/MODL /[id number] Copies: ~ Electronically Signed By: GEE RUIZ MD 08/10/18 0931 PATIENT NAME: CHRIS GUSTAFSON JR OPERATIVE REPORT DATE OF : 38 REPORT #: [id number] PHYSICIAN: GEE RUIZ MD PCP: ESTHELA DEL ROSARIO MD REPORT IS CONFIDENTIAL AND NOT TO BE RELEASED WITHOUT AUTHORIZATION
--- NOTE | 2018-08-10 10:34 | NUR ---
PATIENT UP AND AMBULATING IN HALLWAY WITH FAMILY.
--- NOTE | 2018-08-10 11:24 | NUR ---
PATIENT UP TO AMBULATE ENTIRE HALLWAY WITH MINIMAL STANDBY ASSIST. PATIENT UP TO CHAIR IN ROOM.
--- NOTE | 2018-08-10 11:36 | NUR ---
PATIENT SITTING UP TO SIDE OF BED TO EAT LUNCH. PATIENT IS VOIDING WELL, STEADY TO AMBULATE, DENIES PAIN.
[2018-08-10] MEDS ORDERED: LEVOTHYROXINE88 MCG PO (13:05)
[2018-08-10] MEDS ORDERED: NORCO 7.5-3251 EACH PO (13:18)
[2018-08-10] MEDS ORDERED: TYLENOL EXTRA500 MG PO (13:20)
--- NOTE | 2018-08-10 13:29 | NUR ---
Medications reconciled using pharmacy records and patient interview
--- NOTE | 2018-08-10 16:39 | NUR ---
FAXED CHART NOTES TO [facility] INCLUDING FACE SHEET, ORDERS, H AND P, PROG NOTES, PT EVAL. RECIEVED A FAX CONFIRMATION.
== END 2018-08-10 13:50 | disposition home or self-care (01) | DRG 483 ==
LOC: DS 06:45 → MS 13:35 → DS 13:35 → MS 13:35
PROVIDERS: ADMIT Orthopaedic Surgery
PROC: 0RRJ00Z Replacement of Right Shoulder Joint with Reverse Ball and Socket Synthetic Substitute, Open Approach (ICD-10-PCS; principal; 2018-08-09 09:00)
DX: M19.011 Primary osteoarthritis, right shoulder (principal); I48.91 Unspecified atrial fibrillation; M10.9 Gout, unspecified; E78.5 Hyperlipidemia, unspecified; N40.0 Benign prostatic hyperplasia without lower urinary tract symptoms; E03.9 Hypothyroidism, unspecified; K21.9 Gastro-esophageal reflux disease without esophagitis; R25.1 Tremor, unspecified; I10 Essential (primary) hypertension; Z87.891 Personal history of nicotine dependence; Z86.73 Personal history of transient ischemic attack (TIA), and cerebral infarction without residual deficits; Z79.01 Long term (current) use of anticoagulants; Z79.899 Other long term (current) drug therapy; Z88.1 Allergy status to other antibiotic agents; Z88.8 Allergy status to other drugs, medicaments and biological substances
CPT/HCPCS: 01630; 36415; 64415; 73030; 76942; 80048; 85025; 97110; 97161; C1713; C1776; J0330; J0690; J1100; J2370; J2405; J2704; J3010; J7120

== ENCOUNTER 2018-08-12 13:32 | Observation (INO) | payer MEDICARE, OTHER ==
[~2018-08-12] VITALS: Ht 175.3 cm; Wt 77.6 kg
--- OUTSIDE RECORDS SUMMARY | ~2018-08-12 | XMS | Encounter Summary ---
Demographics + + + | Address | [address] | | | [place] [address] | + + + | Home Phone | | + + + | Preferred Language | Unknown | + + + | Marital Status | | + + + | Latter-Day Affiliation | 1028 | + + + | Race | Unknown | + + + | Ethnic Group | Unknown | + + + Author + + + | Author | [facility] | + + + | Organization | [facility] [employer] [facility] [facility] | + + + | Address | Unknown | + + + | Phone | Unavailable | + + + Support + + + + + | Name | Relationship | Address | Phone | + + + + + | Nithya Roque | ECON | [address] | | | | | [place] | | | | | [address] | | + + + + + Care Team Providers + +------+ + | Care Folding Machine Feeder Name | Role | Phone | + +------+ + | Mary Jane Isabel MD | PCP | | + +------+ + Reason for Visit +--------+ + | Reason | Comments | +--------+ + | Other | [facility] discharge summary and imaging | | | reports 02/2018 | +--------+ + Encounter Details +--------+ + + + + | Date | Type | Department | Care Team | Description | +--------+ + + + + | 06/28/ | Documentati | Johanna | Sabrina Cope, | Other [facility] Rowe | | 2019 | on Only | [facility] | [place] | [facility] | | | | [address] | | discharge summary | | | | [place] | | and imaging reports | | | | [address] | | 02/2018) | | | | [phone] | | | +--------+ + + + + Social History + +-------+ +--------+ + | Tobacco Use | Types | Packs/Day | Years | Date | | | | | Used | | + +-------+ +--------+ + | Former Smoker | | 1 | 35 | Quit: 12/01/1992 | + +-------+ +--------+ + + +---+---+---+ | Smokeless Tobacco: | | | | | Never Used | | | | + +---+---+---+ + + +---------+ + | Alcohol Use | Drinks/We | oz/Week | Comments | | | ek | | | + + +---------+ + | Yes | 1-2 | 0.0 | occasionally | | | Glasses | | | | | of wine | | | | | 1-2 Cans | | | | | of beer | | | | | 1-2 Shots | | | | | of | | | | | liquor | | | + + +---------+ + + + + | Sex Assigned at | Date Recorded | | | | + + + | Not on file | | + + + as of this encounter Plan of Treatment +--------+---------+ + + + | Date | Type | Specialty | Care Team | Description | +--------+---------+ + + + | 11/22/ | Office | Cardiology | Ibrahima Hernandez, | | | 2018 | Visit | | MD [address] | | | | | | [place], | | | | | | [place] [address] | | | | | | [phone] | | | | | | | | +--------+---------+ + + + as of this encounter Visit Diagnoses Not on filein this encounter"
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
--- OUTSIDE RECORDS SUMMARY | ~2018-08-12 | XMS | Clinical Summary ---
Demographics + + + | Address | [address] | | | [place] [address] | + + + | Home Phone | | + + + | Preferred Language | Unknown | + + + | Marital Status | | + + + | Mandaen Affiliation | 1028 | + + + | Race | Unknown | + + + | Ethnic Group | Unknown | + + + Author + + + | Author | [facility] [employer] [facility] | + + + | Organization | [facility] | + + + | Address | Unknown | + + + | Phone | Unavailable | + + + Support + + + + + | Name | Relationship | Address | Phone | + + + + + | Nithya Roque | ECON | [address] | | | | | [place] | | | | | [address] | | + + + + + Care Team Providers + +------+ + | Care Electric Repair Supervisor Name | Role | Phone | + [...] + + + | Cerebrovascular accident (CVA) ([facility]) | 02/21/2018 | + + + + [...] | Anh Dodd, | Other (EKG from [facility] | | 2019 | on Only | | [place] | Leoncio) | +--------+ + + + + | 06/28/ | Documentati | | Sabrina Cope, | Other ([facility] | | 2018 | on Only | | [place] | [facility] | | | | | | discharge summary | | | | | | and imaging reports | | | | | | 02/2018) | +--------+ + + + + | 06/23/ | Office | | Dottie Almonte, | Ischemic stroke | | 2018 | Visit | | MD | ([facility]) (Primary Dx); | | | | | | Imbalance | +--------+ + + + + | 06/02/ | Office | | Ibrahima Hernandez, | Cerebrovascular | | 2018 | Visit | | MD | accident (CVA) due | | | | | | to occlusion of | | | | | | right cerebellar | | | | | | artery ([facility]) | | | | | | (Primary Dx); | | | | | | Persistent atrial | | | | | | fibrillation ([facility]); | | | | | | Acute [...] | | | | | | emphysema ([facility]); | | | | | | Asymptomatic | | | | | | bilateral carotid | | | | | | artery stenosis | +--------+ + + + + from Last 3 Months Family History + + +------+ + | Medical History | Relation | Name | Comments | + + +------+ + | Coronary art dis | Brother | | CA | + + +------+ + | Hypertension [...] | | | | | | [place], | | | | | | [place] [address] | | | | | | [phone] | | | | | | | [...] VERT PS: 57.25 cm/s | | | Clay Roaster: APRIL Authenticated by: JEEVAN VIEIRA MD Report | | | Date/Time: -- 00_[id number]:40:21 | | + + + + + | Procedure Note | + + | Case, Rad Results In - 05/25/2018 8:40 PM PST Patient Name: Ronnie ROQUE of | | : 1940Accession: [id number] Physician: JEEVAN VIEIRA MD | | INDICATIONS [...] JEEVAN VIEIRA | | MDReport Date/Time: -- 27_9-9-2939_00:40:21IMPRESSION:1. Mild disease of the right | | [...] |VERT PS: 57.25 cm/s | | | |Clay Roaster: DH | |Authenticated by: JEEVAN VIEIRA MD | |Report Date/Time: -- 57_[id number]_27:40:21 | | | |IMPRESSION: | |1. Mild disease of the right internal carotid artery. | |2. Mild disease of the left internal carotid artery. | + + + + + + + | Performing | Address | City/State/Zipcode | Phone Number | | Organization | | | | + + + + + | [facility] | [address] | [place] [address] | | + + + + + [...] +------+-------+ + | MEDICARE | MEDICA | [id number] | | | [address] | | | [place] | | | | [place] [address] | | | IP-OP | | | | | + +--------+ +------+-------+ + | - WPS - | TRICAR | [id number] | | | [address] [address] | | | [place] | | | | [place] | | | [place] | | | | [phone] | + +--------+ +------+-------+ + + +--------+ +--------+ + + | Guarantor Name | Accoun | Relation to | Date | Phone | Billing Address | | | t Type | Patient | of | | | | | | | | | | + +--------+ +--------+ + + | BHARAT ROQUE | Person | Self | [birth year] | Home: | [facility] | | [place] | al/Fam | | 1941 | [phone] [address] [place], | | | [place] | | | [phone] | [place] [address] | + +--------+ +--------+ + +
--- OUTSIDE RECORDS SUMMARY | ~2018-08-12 | XMS | Encounter Summary ---
Demographics + + + | Address | [address] | | | [place] [address] | + + + | Home Phone | | + + + | Preferred Language | Unknown | + + + | Marital Status | | + + + | Buddhist Affiliation | 1028 | + + + | Race | Unknown | + + + | Ethnic Group | Unknown | + + + Author + + + | Author | [facility] | + + + | Organization | [facility] | + + + | Address | Unknown | + + + | Phone | Unavailable | + + + Support + + + + + | Name | Relationship | Address | Phone | + + + + + | Nithya Roque | ECON | [address] | | | | | [place] | | | | | [address] | | + + + + + Care Team Providers + +------+ + | Care Manager Winter Name | Role | Phone | + +------+ + | Mary Jane Isabel MD | PCP | | + +------+ + Reason for Visit +--------+ + | Reason | Comments | +--------+ + | Other | [facility] discharge summary and imaging | | | reports 02/2018 | +--------+ + Encounter Details +--------+ + + + + | Date | Type | Department | Care Team | Description | +--------+ + + + + | 06/28/ | Documentati | Johanna | Sabrina Cope, | Other [facility] | | 2019 | on Only | [facility] | [place] | [facility] | | | | [address] | | discharge summary | | | | [place] | | and imaging reports | | | | [address] | | 02/2018) | | | | [phone] | | | +--------+ + + + [...] | | | | | | [place] [address] | | | | | | [phone] | | | | | | | | +--------+---------+ + + + as of this encounter Visit Diagnoses Not on filein this encounter"
--- OUTSIDE RECORDS SUMMARY | ~2018-08-12 | XMS | Clinical Summary ---
Demographics + + + | Address | [address] | | | [place] [address] | + + + | Home Phone | | + + + | Preferred Language | Unknown | + + + | Marital Status | | + + + | Jew Affiliation | 1028 | + + + | Race | Unknown | + + + | Ethnic Group | Unknown | + + + Author + + + | Author | [facility] | | | and [place] | + + + | Organization | [facility] | | | and [place] | + + + | Address | Unknown | + + + | Phone | Unavailable | + + + Support + + + + + | Name | Relationship | Address | Phone | + + + + + | Nithya Roque | ECON | [address] | | | | | [place] | | | | | [address] | | + + + + + Care Team Providers + +------+ + | Care Sales Enablement Lead Name | Role | Phone | + [...]
--- OUTSIDE RECORDS SUMMARY | ~2018-08-12 | XMS | Encounter Summary ---
Demographics + + + | Address | [address] | | | [place] [address] | + + + | Home Phone | | + + + | Preferred Language | Unknown | + + + | Marital Status | | + + + | Mu-Ism Affiliation | 1028 | + + + | Race | Unknown | + + + | Ethnic Group | Unknown | + + + Author + + + | Author | [facility] | + + + | Organization | [facility] | + + + | Address | Unknown | + + + | Phone | Unavailable | + + + Support + + + + + | Name | Relationship | Address | Phone | + + + + + | Nithya Roque | ECON | [address] | | | | | [place] | | | | | [address] | | + + + + + Care Team Providers + +------+ + | Care Pharmacy Director Name | Role | Phone | + +------+ + | Mary Jane Isabel MD | PCP | | + +------+ + Reason for Visit +--------+ + | Reason | Comments | +--------+ + | Other | EKG from [facility] | +--------+ + Encounter Details +--------+ + + + + | Date | Type | Department | Care Team | Description | +--------+ + + + + | 07/28/ | Documentati | DALTON Bobo | Anh Dodd, | Other (EKG from St. | | 2019 | on Only | Whit [place] | ANN-MARIE | Leoncio) | | | | [address] | | | | | | [place] | | | | | | [address] | | | | | | [phone] | | | +--------+ + + + [...] | | | | | | [place] [address] | | | | | | [phone] | | | | | | | | +--------+---------+ + + + as of this encounter Visit Diagnoses Not on filein this encounter"
--- OUTSIDE RECORDS SUMMARY | ~2018-08-12 | XMS | Encounter Summary ---
Demographics + + + | Address | [address] | | | [place] [address] | + + + | Home Phone | | + + + | Preferred Language | Unknown | + + + | Marital Status | | + + + | Scientology Affiliation | 1028 | + + + | Race | Unknown | + + + | Ethnic Group | Unknown | + + + Author + + + | Author | [facility] | + + + | Organization | [facility] | + + + | Address | Unknown | + + + | Phone | Unavailable | + + + Support + + + + + | Name | Relationship | Address | Phone | + + + + + | Nithya Roque | ECON | [address] | | | | | [place] | | | | | [address] | | + + + + + Care Team Providers + +------+ + | Care Outreach Coordinator Name | Role | Phone | + [...] | | | | | | [place] | | | | | | [address] | | | | | | [phone] | | | +--------+ + + + [...] | | | | | | [place] [address] | | | | | | [phone] | | | | | | | | +--------+---------+ + + + as of this encounter Visit Diagnoses Not on filein this encounter"
--- OUTSIDE RECORDS SUMMARY | ~2018-08-12 | XMS | Encounter Summary ---
Demographics + + + | Address | [address] | | | [place] [address] | + + + | Home Phone | | + + + | Preferred Language | Unknown | + + + | Marital Status | | + + + | Mormonism Affiliation | 1028 | + + + | Race | Unknown | + + + | Ethnic Group | Unknown | + + + Author + + + | Author | [facility] | + + + | Organization | [facility] | + + + | Address | Unknown | + + + | Phone | Unavailable | + + + Support + + + + + | Name | Relationship | Address | Phone | + + + + + | Nithya Roque | ECON | [address] | | | | | [place] | | | | | [address] | | + + + + + Care Team Providers + +------+ + | Care Python Java Developer Name | Role | Phone | + [...] [facility] | | | | | | [place], [place] | HOSPITAL | | | | | | [address] | [address] | | | | | | Phone: | [address] | | | | | | [phone] | [place] | | | | | | Fax: | [address] | | | | | | [phone] | Phone: | | | | | | | [phone] | | | | | | | Fax: | | | | | | | [phone] | + + + + + + + Reason for Visit + + + | Reason | Comments | + + + | Follow-up | doppler done | + + + Encounter Details +--------+---------+ + + + | Date | Type | Department | Care Team | Description | +--------+---------+ + + + | 01/10/ | Office | [facility] | Ibrahima Hernandez Darrel, | Cerebrovascular | | 2019 | Visit | Cardiology [place] | [address] | accident (CVA) due | | | | [address] | [place], | to occlusion of | | | | [place], [place] | [place] [address] | right cerebellar | | | | [address] | [phone] | artery (HCC) | | | | [phone] | | (Primary Dx); | | | [...] caused his CVA. He was admitted to [facility] 02/23/18, after developing difficulty walking , veering [...] of exposure to agent orange and a 35-zols-kbnr smoking history, even though he quit 25 years ago. He had a pulmonary evaluati on with Dr. Patel in February, and she did not think he had significant COPD. He was refe rred for a sleep study, as his review of systems indicated he may have obstructive sleep waxer tender ea syndrome, still pending. A second referral was sent to the [facility] sleep Ce nter. Review of Systems [...] surge ry 2016. -- MRA (02/24/18 - [facility]): right cerebellar infarct, mild chronic ischemic disease, atrophy -- CT (02/23/18 - [facility]): Right acute cerebellar infarct with encephalomalacia EYES: [...] problems. No excessive hunger, thirst. PULMONARY/SLEEP: Agent [place] exposure, 1970s. c/o Dyspnea on Exertion, denies [...] orange exposure Atrial fibrillation (HCC) 02/24/2018 Persistent, [id number] VASc 5 BPH (benign prostatic hyperplasia) Cerebrovascular accident (CVA) (HCC) 02/21/2018 right cerebellar CVA Chronic obstructive pulmonary disease (HCC) Congestive heart failure (HCC) Diastolic heart failure Coronary artery disease 09/29/2013 mild, non-obstructive CAD Hyperlipidemia Hypertension Hypothyroidism 1994 Grave's disease, first Hyperthyroidism, now residual Hypothyroidism following treatment radioactive Iodine S/P ablation of atrial flutter 2008 Roger Jimenez MD ([place]) Past Surgical History Procedure Laterality Date BRAIN SURGERY 12/2016 gamma knife for tremors ([facility]) CARDIAC ELECTROPHYSIOLOGY MAPPING AND ABLATION 2008 Roger Jimenez MD ([place]) EYE MUSCLE SURGERY due to Grave's disease FINGER FRACTURE SURGERY HERNIA REPAIR x 3, 2 left inguinal, 1 right inguinal herniorrhaphies NEUROMA SURGERY left side of neck TIBIA FRACTURE SURGERY ORIF, left tibia, age 16 tremor essential Family History Problem Relation Age of Onset Coronary art dis Brother 68 [place] Hypertension Brother Heart disease Paternal Uncle Heart [...] | | | | | | [place] [address] | | | | | | [phone] | | | | | | | [...]
--- OUTSIDE RECORDS SUMMARY | ~2018-08-12 | XMS | Encounter Summary ---
Demographics + + + | Address | [address] | | | [place] [address] | + + + | Home Phone | | + + + | Preferred Language | Unknown | + + + | Marital Status | | + + + | Rastafari Affiliation | 1028 | + + + | Race | Unknown | + + + | Ethnic Group | Unknown | + + + Author + + + | Author | [facility] | + + + | Organization | [facility] | + + + | Address | Unknown | + + + | Phone | Unavailable | + + + Support + + + + + | Name | Relationship | Address | Phone | + + + + + | Nithya Roque | ECON | [address] | | | | | [place] | | | | | [address] | | + + + + + Care Team Providers + +------+ + | Care Professor Of Environmental Engineering Name | Role | Phone | + [...] [facility] | | | | | | [place], [place] | HOSPITAL | | | | | | [address] | [address] | | | | | | Phone: | [address] | | | | | | [phone] | [place] | | | | | | Fax: | [address] | | | | | | [phone] | Phone: | | | | | | | [phone] | | | | | | | Fax: | | | | | | | [phone] | + + + + + + + Reason for Visit + + + | Reason | Comments | + + + | Follow-up | doppler done | + + + Encounter Details +--------+---------+ + + + | Date | Type | Department | Care Team | Description | +--------+---------+ + + + | 01/10/ | Office | [facility] | Ibrahima Hernandez Darrel, | Cerebrovascular | | 2019 | Visit | Cardiology [place] | [address] | accident (CVA) due | | | | [address] | [place], | to occlusion of | | | | [place], [place] | [place] [address] | right cerebellar | | | | [address] | [phone] | artery (HCC) | | | | [phone] | | (Primary Dx); | | | [...] caused his CVA. He was admitted to [facility] 02/23/18, after developing difficulty walking , veering [...] of exposure to agent orange and a 80-sghh-ekxn smoking history, even though he quit 25 years ago. He had a pulmonary evaluati on with Dr. Patel in February, and she did not think he had significant COPD. He was refe rred for a sleep study, as his review of systems indicated he may have obstructive sleep manager commodities ea syndrome, still pending. A second referral was sent to the [facility] sleep Ce nter. Review of Systems CONSTITUTIONAL: [...] surge ry 2016. -- MRA (02/24/18 - [facility]): right cerebellar infarct, mild chronic ischemic disease, atrophy -- CT (02/23/18 - [facility]): Right acute cerebellar infarct with encephalomalacia [...] problems. No excessive hunger, thirst. PULMONARY/SLEEP: Agent [place] exposure, 1970s. c/o Dyspnea on Exertion, denies [...] orange exposure Atrial fibrillation (HCC) 02/24/2018 Persistent, [id number] VASc 5 BPH (benign prostatic hyperplasia) Cerebrovascular accident (CVA) (HCC) 02/21/2018 right cerebellar CVA Chronic obstructive pulmonary disease (HCC) Congestive heart failure (HCC) Diastolic heart failure Coronary artery disease 09/29/2013 mild, non-obstructive CAD Hyperlipidemia Hypertension Hypothyroidism 1994 Grave's disease, first Hyperthyroidism, now residual Hypothyroidism following treatment radioactive Iodine S/P ablation of atrial flutter 2008 Roger Jimenez MD ([place]) Past Surgical History Procedure Laterality Date BRAIN SURGERY 12/2016 gamma knife for tremors ([facility]) CARDIAC ELECTROPHYSIOLOGY MAPPING AND ABLATION 2008 Roger Jimenez MD ([place]) EYE MUSCLE SURGERY due to Grave's disease [...] | | | | | | [place] [address] | | | | | | [phone] | | | | | | | [...]
--- OUTSIDE RECORDS SUMMARY | ~2018-08-12 | XMS | Clinical Summary ---
Demographics + + + | Address | [address] | | | [place] [address] | + + + | Home Phone [...] + | Author | [facility] | + + + | Organization | [facility] | + + + | Address | Unknown | + + + | Phone | Unavailable | + + + Support + + + + + | Name | Relationship | Address | Phone | + + + + + | Nithya Roque | ECON | [address] | | | | | [place] | | | | | [address] | | + + + + + Care Team Providers + +------+ + | Care Projection Engineer Name | Role | Phone | + [...] + + + | Cerebrovascular accident (CVA) ([facility]) | 02/21/2018 | + + + + [...] | Anh Dodd, | Other (EKG from [facility] | | 2019 | on Only | | [place] | Leonc[place]) | +--------+ + + + + | 06/28/ | Documentati | | Sabrina Cope, | Other ([facility] | | 2018 | on Only | | [place] | [facility] | | | | | | discharge summary | | | | | | and imaging reports | | | | | | 02/2018) | +--------+ + + + + | 06/23/ | Office | | Dottie Almonte, | Ischemic stroke | | 2018 | Visit | | MD | ([facility]) (Primary Dx); | | | | | | Imbalance | +--------+ + + + + | 06/02/ | Office | | Ibrahima Hernandez, | Cerebrovascular | | 2018 | Visit | | MD | accident (CVA) due | | | | | | to occlusion of | | | | | | right cerebellar | | | | | | artery ([facility]) | | | | | | (Primary Dx); | | | | | | Persistent atrial | | | | | | fibrillation ([facility]); | | | | | | Acute [...] | | | | | | emphysema ([facility]); | | | | | | Asymptomatic | | | | | | bilateral carotid | | | | | | artery stenosis | +--------+ + + + + from Last 3 Months Family History + + +------+ + | Medical History | Relation | Name | Comments | + + +------+ + | Coronary art dis | Brother | | [place] | + + +------+ + | Hypertension [...] | | | | | | [place] [address] | | | | | | [phone] | | | | | | | [...] VERT PS: 57.25 cm/s | | | Speech And Hearing Director: APRIL Authenticated by: JEEVAN VIEIRA MD Report | | | Date/Time: -- 24_[id number]_68:40:21 | | + + + + + | Procedure Note | + + | Case, Rad Results In - 05/25/2018 8:40 PM PST Patient Name: Ronnie ROQUE of | | : 1940Accession: [id number] Physician: JEEVAN VIEIRA MD | | INDICATIONS [...] AC: 55 degICA ED: | | 11.03 cm/lEva ED: 21.73 cm/Elva ED: 14.21 cm/Elva ED: [...] JEEVAN VIEIRA | | MDReport Date/Time: -- 66_1-0-1944_10:40:21IMPRESSION:1. Mild disease of the right | | [...] |VERT PS: 57.25 cm/s | | | |Speech And Hearing Director: DH | |Authenticated by: JEEVAN VIEIRA MD | |Report Date/Time: -- 80_[id number]_31:40:21 | | | |IMPRESSION: | |1. Mild disease of the right internal carotid artery. | |2. Mild disease of the left internal carotid artery. | + + + + + + + | Performing | Address | City/State/Zipcode | Phone Number | | Organization | | | | + + + + + | [facility] | [address] | [place] [address] | | + + + + + [...] +------+-------+ + | MEDICARE | MEDICA | [id number] | | | [address] | | | RE | | | | [place] [address] | | | IP-OP | | | | | + +--------+ +------+-------+ + | - WPS - | TRICAR | [id number] | | | [address] [address] | | | [place] FOR | | | | [place] | | | LIFE | | | | [address] | + +--------+ +------+-------+ + + +--------+ +--------+ + + | Guarantor Name | Accoun | Relation to | Date | Phone | Billing Address | | | t Type | Patient | of | | | | | | | | | | + +--------+ +--------+ + + | BHARAT ROQUE | Person | Self [birth year] Home: | [facility] [facility] | | [place]AY[place] | al/Fam | | 1941 | [phone] | [address] [place], | | | [place] | | | [phone] | [place] [address] | + +--------+ +--------+ + +
--- OUTSIDE RECORDS SUMMARY | ~2018-08-12 | XMS | Encounter Summary ---
Demographics + + + | Address | [address] | | | [place] [address] | + + + | Home Phone | | + + + | Preferred Language | Unknown | + + + | Marital Status | | + + + | Jainism Affiliation | 1028 | + + + | Race | Unknown | + + + | Ethnic Group | Unknown | + + + Author + + + | Author | [facility] | + + + | Organization | [facility] | + + + | Address | Unknown | + + + | Phone | Unavailable | + + + Support + + + + + | Name | Relationship | Address | Phone | + + + + + | Nithya Roque | ECON | [address] | | | | | [place] | | | | | [address] | | + + + + + Care Team Providers + +------+ + | Care Wet Process Assistant Head Miller Name | Role | Phone | + +------+ + | Mary Jane Isabel MD | PCP | | + +------+ + Reason for Visit +--------+ + | Reason | Comments | +--------+ + | Other | [facility] discharge summary and imaging | | | reports 02/2018 | +--------+ + Encounter Details +--------+ + + + + | Date | Type | Department | Care Team | Description | +--------+ + + + + | 06/28/ | Documentati | Johanna | Sabrina Cope, | Other [facility] | | 2019 | on Only | [facility] | [place] | [facility] | | | | [address] | | discharge summary | | | | [place] | | and imaging reports | | | | [address] | | 02/2018) | | | | [phone] | | | +--------+ + + + [...] | | | | | | [place] [address] | | | | | | [phone] | | | | | | | | +--------+---------+ + + + as of this encounter Visit Diagnoses Not on filein this encounter"
--- OUTSIDE RECORDS SUMMARY | ~2018-08-12 | XMS | Clinical Summary ---
Demographics + + + | Address | [address] | | | [place] [address] | + + + | Home Phone | | + + + | Preferred Language | Unknown | + + + | Marital Status | | + + + | Caodaism Affiliation | 1028 | + + + | Race | Unknown | + + + | Ethnic Group | Unknown | + + + Author + + + | Author | [facility] | | | and [place] | + + + | Organization | [facility] | | | and [place] | + + + | Address | Unknown | + + + | Phone | Unavailable | + + + Support + + + + + | Name | Relationship | Address | Phone | + + + + + | Nithya Roque | ECON | [address] | | | | | [place] | | | | | [address] | | + + + + + Care Team Providers + +------+ + | Care Hemodialysis Patient Care Specialist Name | Role | Phone | + [...]
--- OUTSIDE RECORDS SUMMARY | ~2018-08-12 | XMS | Encounter Summary ---
Demographics + + + | Address | [address] | | | [place] [address] | + + + | Home Phone | | + + + | Preferred Language | Unknown | + + + | Marital Status | | + + + | Restorationism Affiliation | 1028 | + + + | Race | Unknown | + + + | Ethnic Group | Unknown | + + + Author + + + | Author | [facility] | + + + | Organization | [facility] | + + + | Address | Unknown | + + + | Phone | Unavailable | + + + Support + + + + + | Name | Relationship | Address | Phone | + + + + + | Nithya Roque | ECON | [address] | | | | | [place] | | | | | [address] | | + + + + + Care Team Providers + +------+ + | Care Washtub Worker Name | Role | Phone | + [...] | | | | | | [place] | | | | | | [address] | | | | | | [phone] | | | +--------+ + + + [...] | | | | | | [place] [address] | | | | | | [phone] | | | | | | | | +--------+---------+ + + + as of this encounter Visit Diagnoses Not on filein this encounter"
--- OUTSIDE RECORDS SUMMARY | ~2018-08-12 | XMS | Clinical Summary ---
Demographics + + + | Address | [address] | | | [place] [address] | + + + | Home Phone | | + + + | Preferred Language | Unknown | + + + | Marital Status | Single | + + + | Uatsdin Affiliation | Unknown | + + + [...] Team Providers + +------+ + | Care Neck Fitter Name | Role | Phone | + +------+ + PP | Unavailable | + +------+ + Source Comments FEI is fully live on both [facility] Ambulatory and [facility] InPatient.[facility] Allergies Not on File Current Medications Not [...] | Medica | +- | [address] | | | RE A & | | re | [address] | [place] [address] | | | B | | | [...] | | 1941 | | [place] [address] | | | [place] | | | | | + +--------+ +--------+-------+ +"
--- OUTSIDE RECORDS SUMMARY | ~2018-08-12 | XMS | Clinical Summary ---
Demographics + + + | Address | [address] | | | [place] [address] | + + + | Home Phone | | + + + | Preferred Language | Unknown | + + + | Marital Status | Single | + + + | Catholic Affiliation | Unknown | + + + [...] Team Providers + +------+ + | Care Financial Wellness Coach Name | Role | Phone | + +------+ + PP | Unavailable | + +------+ + Source Comments FEI is fully live on both [facility] Ambulatory and [facility] InPatient.[facility] Allergies Not on File Current Medications [...] | Medica | +- | [address] | | | RE A & | | re | [address] | [place] [address] | | | B | | | | | + +--------+ +--------+ + + | JOON | RAJWINDER | [phone] | Ferny | [phone] | | | Namr[address]HEWS | [...] | | 1941 | | [place] [address] | | | [place] | | | | | + +--------+ +--------+-------+ +"
--- OUTSIDE RECORDS SUMMARY | ~2018-08-12 | XMS | Encounter Summary ---
Demographics + + + | Address | [address] | | | [place] [address] | + + + | Home Phone | | + + + | Preferred Language | Unknown | + + + | Marital Status | | + + + | Rastafari Affiliation | 1028 | + + + | Race | Unknown | + + + | Ethnic Group | Unknown | + + + Author + + + | Author | [facility] [employer] | + + + | Organization | Located Within [facility] [employer] [facility] | + + + | Address | Unknown | + + + | Phone | Unavailable | + + + Support + + + + + | Name | Relationship | Address | Phone | + + + + + | Nithya Roque | ECON | [address] | | | | | [place] | | | | | [address] | | + + + + + Care Team Providers + +------+ + | Care Accounting Reconciliation Clerk Name | Role | Phone | + [...] BUSTILLO B | | | | | ([facility]) | [place], | [place], [place] | | | | | | [place] [address] | [address] Phone: | | | | | | Phone: | [phone] | | | | | | [phone] | Fax: | | | | | | Fax: | [phone] | | | | | | [phone] | | + +--------+ + + + + Encounter Details +--------+---------+ + + + | Date | Type | Department | Care Team | Description | +--------+---------+ + + + | 06/23/ | Office | Located Within [facility] | Dottie Almonte, | Ischemic stroke | | 2019 | Visit | [facility] | MD [address] | ([facility]) (Primary Dx); | | | | [address] | [facility] | Imbalance | | | | [place], [place] | [address] | | | | | [address] | | | | | | [phone] | | | +--------+---------+ + + + [...] orange exposure Atrial fibrillation (HCC) 02/24/2018 Persistent, [id number] VASc 5 BPH (benign prostatic hyperplasia) Cerebrovascular accident (CVA) (HCC) 02/21/2018 right cerebellar CVA Chronic obstructive pulmonary disease (HCC) Congestive heart failure (HCC) Diastolic heart failure Coronary artery disease 09/29/2013 mild, non-obstructive CAD Hyperlipidemia Hypertension Hypothyroidism 1994 Grave's disease, first Hyperthyroidism, now residual Hypothyroidism following treatment wi radioactive Iodine S/P ablation of atrial flutter 2008 Roger Jimenez MD ([place]) Family History Problem Relation Age of Onset Coronary art dis Brother 68 [place] Hypertension Brother Heart disease Paternal Uncle Heart disease Paternal Uncle Heart disease Paternal Uncle Heart failure Mother Anemia Mother Hypertension Mother Diabetes type II Mother Coronary art dis Mother 3-v CABG in her 70s Stroke Father 74 Social History Social History Marital status: Spouse name: N/A Number of children: N/A Years of education: N/A Occupational History 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 2- Tremor, managed by neurology in [place]. 3- HTN, and A-fib on AC. Plan: [...] he will follow with his neurologist in [place] in Jun, 2018. 6- I covered with [...] | | | | | | [place] [address] | | | | | | [phone] | | | | | | | | +--------+---------+ + + + as of this encounter Visit Diagnoses + + | Diagnosis | + + | Ischemic stroke (HCC) - Primary | + + | Imbalance | + + | Abnormality of gait | + +
--- OUTSIDE RECORDS SUMMARY | ~2018-08-12 | XMS | Encounter Summary ---
Demographics + + + | Address | [address] | | | [place] [address] | + + + | Home Phone | | + + + | Preferred Language | Unknown | + + + | Marital Status | | + + + | Restoration Affiliation | 1028 | + + + | Race | Unknown | + + + | Ethnic Group | Unknown | + + + Author + + + | Author | [facility] | + + + | Organization | [facility] [employer] [facility] | + + + | Address | Unknown | + + + | Phone | Unavailable | + + + Support + + + + + | Name | Relationship | Address | Phone | + + + + + | Nithya Roque | ECON | [address] | | | | | [place] | | | | | [address] | | + + + + + Care Team Providers + +------+ + | Care Field Organizer Name | Role | Phone | + [...] [facility] | | | | | | [place], [place] | HOSPITAL | | | | | | [address] | [address] | | | | | | Phone: | [address] | | | | | | [phone] | [place] | | | | | | Fax: | [address] | | | | | | [phone] | Phone: | | | | | | | [phone] | | | | | | | Fax: | | | | | | | [phone] | + + + + + + + Reason for Visit + + + | Reason | Comments | + + + | Follow-up | doppler done | + + + Encounter Details +--------+---------+ + + + | Date | Type | Department | Care Team | Description | +--------+---------+ + + + | 01/10/ | Office | [facility] | Ibrahima Hernandez Darrel, | Cerebrovascular | | 2019 | Visit | Cardiology [place] | [address] | accident (CVA) due | | | | [address] | [place], | to occlusion of | | | | [place], [place] | [place] [address] | right cerebellar | | | | [address] | [phone] | artery (HCC) | | | | [phone] | | (Primary Dx); | | | [...] caused his CVA. He was admitted to [facility] 02/23/18, after developing difficulty walking , [...] of exposure to agent orange and a [id number] smoking history, even though he quit 25 years ago. He had a pulmonary evaluati on with Dr. Patel in February, and she did not think he had significant COPD. He was refe rred for a sleep study, as his review of systems indicated he may have obstructive sleep fixer boarding room ea syndrome, still pending. A second referral was sent to the [facility] sleep Ce nter. Review of Systems [...] surge ry 2016. -- MRA (02/24/18 - [facility]): right cerebellar infarct, mild chronic ischemic disease, atrophy -- CT (02/23/18 - [facility]): Right acute cerebellar infarct with [...] problems. No excessive hunger, thirst. PULMONARY/SLEEP: Agent Guthrie exposure, 1970s. c/o Dyspnea on Exertion, denies [...] orange exposure Atrial fibrillation (HCC) 02/24/2018 Persistent, [id number] VASc 5 BPH (benign prostatic hyperplasia) Cerebrovascular accident (CVA) (HCC) 02/21/2018 right cerebellar CVA Chronic obstructive pulmonary disease (HCC) Congestive heart failure (HCC) Diastolic heart failure Coronary artery disease 09/29/2013 mild, non-obstructive CAD Hyperlipidemia Hypertension Hypothyroidism 1994 Grave's disease, first Hyperthyroidism, now residual Hypothyroidism following treatment radioactive Iodine S/P ablation of atrial flutter 2008 Roger Jimenez MD ([place]) Past Surgical History Procedure Laterality Date BRAIN SURGERY 12/2016 gamma knife for tremors ([facility]) CARDIAC ELECTROPHYSIOLOGY MAPPING AND ABLATION 2008 Roger Jimenez MD ([place]) EYE MUSCLE SURGERY due to Grave's disease FINGER FRACTURE SURGERY HERNIA REPAIR x 3, 2 left inguinal, 1 right inguinal herniorrhaphies NEUROMA SURGERY left side of neck TIBIA FRACTURE SURGERY ORIF, left tibia, age 16 tremor essential Family History Problem Relation Age of Onset Coronary art dis Brother 68 [place] Hypertension Brother Heart disease Paternal Uncle Heart [...] | | | | | | [place] [address] | | | | | | [phone] | | | | | | | [...]
--- OUTSIDE RECORDS SUMMARY | ~2018-08-12 | XMS | Encounter Summary ---
Demographics + + + | Address | [address] | | | [place] [address] | + + + | Home Phone | | + + + | Preferred Language | Unknown | + + + | Marital Status | | + + + | Scientologist Affiliation | 1028 | + + + | Race | Unknown | + + + | Ethnic Group | Unknown | + + + Author + + + | Author | [facility] | + + + | Organization | [facility] [employer] | + + + | Address | Unknown | + + + | Phone | Unavailable | + + + Support + + + + + | Name | Relationship | Address | Phone | + + + + + | Nithya Roque | ECON | [address] | | | | | [place] | | | | | [address] | | + + + + + Care Team Providers + +------+ + | Care Switch Operator Name | Role | Phone | [...] [facility]) | [place], | [place], [place] | | | | | | [place] [address] | [address] Phone: | | | | | | Phone: | [phone] | | | | | | [phone] | Fax: | | | | | | Fax: | [phone] | | | | | | [phone] | | + +--------+ + + + + Encounter Details +--------+---------+ + + + | Date | Type | Department | Care Team | Description | +--------+---------+ + + + | 06/23/ | Office | [facility] | Dottie Almonte, | Ischemic stroke | | 2019 | Visit | Neuroscience Center | MD [address] | ([facility]) (Primary Dx); | | | | [address] | [facility] | Imbalance | | | | [place], [place] | [address] | | | | | [address] | | | | | | [phone] | | | +--------+---------+ + + + [...] orange exposure Atrial fibrillation (HCC) 02/24/2018 Persistent, [id number] VASc 5 BPH (benign prostatic hyperplasia) Cerebrovascular accident (CVA) (HCC) 02/21/2018 right cerebellar CVA Chronic obstructive pulmonary disease (HCC) Congestive heart failure (HCC) Diastolic heart failure Coronary artery disease 09/29/2013 mild, non-obstructive CAD Hyperlipidemia Hypertension Hypothyroidism 1994 Grave's disease, first Hyperthyroidism, now residual Hypothyroidism following treatment wi radioactive Iodine S/P ablation of atrial flutter 2008 Roger Jimenez MD ([place]) Family History Problem Relation Age of Onset Coronary art dis Brother 68 [place] Hypertension Brother Heart disease Paternal Uncle Heart disease Paternal Uncle Heart disease Paternal Uncle Heart failure Mother Anemia Mother Hypertension Mother Diabetes type II Mother Coronary art dis Mother 3-v CABG in her 70s Stroke Father 74 Social History Social History Marital status: Spouse name: N/A Number of children: N/A Years of education: N/A Occupational 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 2- Tremor, managed by neurology in [place]. 3- HTN, and A-fib on AC. Plan: [...] he will follow with his neurologist in [place] in Jun, 2018. 6- I covered with [...] | 2019 | Visit | | MD [address] | | | | | | [place], | | | | | | [place] [address] | | | | | | [phone] | | | | | | | | +--------+---------+ + + + as of this encounter Visit Diagnoses + + | Diagnosis | + + | Ischemic stroke (HCC) - Primary | + + | Imbalance | + + | Abnormality of gait | + +
--- OUTSIDE RECORDS SUMMARY | ~2018-08-12 | XMS | Clinical Summary ---
Demographics + + + | Address | [address] | | | [place] [address] | + + + | Home Phone | | + + + | Preferred Language | Unknown | + + + | Marital Status | | + + + | Zoroastrian Affiliation | 1028 | + + + | Race | Unknown | + + + | Ethnic Group | Unknown | + + + Author + + + | Author | [facility] | | | and [place] | + + + | Organization | [facility] | | | and [place] | + + + | Address | Unknown | + + + | Phone | Unavailable | + + + Support + + + + + | Name | Relationship | Address | Phone | + + + + + | Ntihya Roque | ECON | [address] | | | | | [place] | | | | | [address] | | + + + + + Care Team Providers + +------+ + | Care Transferrer Name | Role | Phone | + [...]
--- OUTSIDE RECORDS SUMMARY | ~2018-08-12 | XMS | Encounter Summary ---
Demographics + + + | Address | [address] | | | [place] [address] | + + + | Home Phone | | + + + | Preferred Language | Unknown | + + + | Marital Status | | + + + | Sikhism Affiliation | 1028 | + + + | Race | Unknown | + + + | Ethnic Group | Unknown | + + + Author + + + | Author | [facility] | + + + | Organization | [facility] | + + + | Address | Unknown | + + + | Phone | Unavailable | + + + Support + + + + + | Name | Relationship | Address | Phone | + + + + + | Nithya Roque | ECON | [address] [facility] | | | | | [place] | | | | | [address] | | + + + + + Care Team Providers + +------+ + | Care Rotor Pilot Name | Role | Phone | + [...] [address]USTILLO [address] | | | | | ([facility]) | [place], | [place], [place] | | | | | | [place] [address] | [address] Phone: | | | | | | Phone: | [phone] | | | | | | [phone] | Fax: | | | | | | Fax: | [phone] | | | | | | [phone] | | + +--------+ + + + + Encounter Details +--------+---------+ + + + | Date | Type | Department | Care Team | Description | +--------+---------+ + + + | 06/23/ | Office | [facility] | Dottie Almonte, | Ischemic stroke | | 2019 | Visit | Neuro[facility] | MD [address] | ([facility]) (Primary Dx); | | | | [address] | [facility] [place] | Imbalance | | | | [place], [place] | [address] | | | | | [address] | | | | | | [phone] | | | +--------+---------+ + + + [...] orange exposure Atrial fibrillation (HCC) 02/24/2018 Persistent, [id number] VASc 5 BPH (benign prostatic hyperplasia) Cerebrovascular accident (CVA) (HCC) 02/21/2018 right cerebellar CVA Chronic obstructive pulmonary disease (HCC) Congestive heart failure (HCC) Diastolic heart failure Coronary artery disease 09/29/2013 mild, non-obstructive CAD Hyperlipidemia Hypertension Hypothyroidism 1994 Grave's disease, first Hyperthyroidism, now residual Hypothyroidism following treatment wi radioactive Iodine S/P ablation of atrial flutter 2008 Roger Jimenez MD ([place]) Family History Problem Relation Age of Onset Coronary art dis Brother 68 [place] Hypertension Brother Heart disease Paternal Uncle Heart disease Paternal Uncle Heart disease Paternal Uncle Heart failure Mother Anemia Mother Hypertension Mother Diabetes type II Mother Coronary art dis Mother 3-v CABG in her 70s Stroke Father 74 Social History Social History Marital status: Spouse name: N/A Number of children: N/A Years of education: N/A Occupational History 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 2- Tremor, managed by neurology in [place]. 3- HTN, and A-fib on AC. Plan: [...] he will follow with his neurologist in [place] in Jun, 2018. 6- I covered with [...] | | | | | | [place] [address] | | | | | | [phone] | | | | | | | | +--------+---------+ + + + as of this encounter Visit Diagnoses + + | Diagnosis | + + | Ischemic stroke (HCC) - Primary | + + | Imbalance | + + | Abnormality of gait | + +
--- OUTSIDE RECORDS SUMMARY | ~2018-08-12 | XMS | Clinical Summary ---
Demographics + + + | Address | [address] | | | [place] [address] | + + + | Home Phone | | + + + | Preferred Language | Unknown | + + + | Marital Status | Single | + + + | Druze Affiliation | Unknown | + + + [...] Team Providers + +------+ + | Care Banquet Attendant Name | Role | Phone | + +------+ + PP | Unavailable | + +------+ + Source Comments FEI is fully live on both [facility] Amb[facility] and [facility] InPatient.[facility] Allergies Not on File Current Medications [...] | Medica | +- | [address] | | | RE A & | | re | [address] | [place] [address] | | | B | | | | | + +--------+ +--------+ + + | JOON | RAJWINDER | [phone] | Ferny | [phone] | | | Namrata MATHEWS | [...] | | 1941 | | [place] [address] | | | gunnar | | | | | + +--------+ +--------+-------+ +"
[~2018-08-12 13:32] MED LIST changes: +LEVOTHYROXINE88 MCG PO; +NORCO 7.5-3251 EACH PO; +TYLENOL EXTRA500 MG PO
--- NOTE | 2018-08-12 18:30 | EKG ---
[facility] [address] [facility] [place], [place] [address] \T\ T wave abnormality, consider lateral ischemia Abnormal ECG No previous ECGs available Confirmed by DAVID NAIK MD ([id number]) on 08/12/2018 6:30:12 PM Electronically Signed By: DAVID NAIK MD 08/12/18 1830 PATIENT NAME: CHRIS GUSTAFSON JR Electrocardiogram DATE OF : 38 PHYSICIAN: DAVID NAIK MD REPORT #: [id number] REPORT IS CONFIDENTIAL AND NOT TO BE RELEASED WITHOUT AUTHORIZATION
--- NOTE | 2018-08-12 20:00 | NUR ---
PATIENT ARIVED TO ROOM 126 VIA STRETCHER, TRANSFERED WITH 1PA TO BED, GAIT IS WEAK BUT STEADY. PATIENT IS TACHYPNEIC, RR 25, SPO2 94% ON 4L O2 VIA NC, REPORTS FEELING MILDLY SOB, DENIES RESPIRATORY DISTRESS. ALERT AND ORIENTED X4, VITALS ALL OTHER VITALS WNL, REMAINS IN AFIB, RATE WNL. LUNGS ARE CLEAR, DIM IN BASES. INCISION TO RIGH SHOULDER NOTED FROM RECENT SURGERY, INTACT, NO ERYTHEMA NOTED, NO SWELLING OR SIGNS OF INFECTION, NOT WARM TO TOUCH. IV TO LEFT FOREARM INTACT. PATIENT DENIES PAIN, NO NEEDS AT THIS TIME. CALL LIGHT WITHIN REACH.
--- NOTE | 2018-08-12 20:39 | NUR ---
EVENING MEDS GIVEN, PT TOLERATED PO MEDS WELL, PT DENIES SOB/CP, ON 4LNC, O2 SAT REMAINS 94-96%. PT GIVEN IV LASIX, EDUCATION PROVIDED REGARDING MEDICATIONS. PT AGREEABLE TO POC. IV DRESSING ON PT'S LEFT FOREARM REPLACED WITH WINDOW DRESSING. IV SL, FLUSHES WELL, GOOD BLOOD RETURN. PT DENIES ANY NEEDS AT THIS TIME, DENIES ANY PAIN. CALL LIGHT WITHIN REACH. FALL PRECAUTIONS IN PLACE.
--- NOTE | 2018-08-12 21:00 | NUR ---
PT ASSISTED UP TO STAND AT BEDSIDE TO VOID, PT VOIDED 175MLS OF CLEAR YELLOW URINE, PT STOOD WELL AT BEDSIDE WITH MINIMAL ASSISTANCE TO GET OUT OF BED, NO C/O LIGHT HEADEDNESS OR DIZZINESS, PT BACK TO BED, CALL LIGHT WITHIN REACH. FALL PRECAUTIONS IN PLACE.
--- NOTE | 2018-08-12 21:28 | NUR ---
PT ASSISTED TO VOID AT BEDSIDE, 175 MLS VOIDED IN URINAL, PT BACK TO BED, CALL LIGHT WITHIN REACH, FALL PRECAUTIONS IN PLACE.
--- NOTE | 2018-08-12 21:54 | NUR ---
ASSISTED PATIENT TO BEDSIDE, SBA TO URINATE PALE YELLOW URINE. NOW RESTING IN BED AGAIN. BREATHING IS TACHYPNEIC WITH RR 26 TO 30 WHILE STANDING, SPO2 DOWN TO 86% WITH 4L O2. RECOVERS QUICKLY AT REST WITH SPO2 93% ON 4L O2, RR DOWN TO 24. CALL LIGHT WITHIN REACH, DENIES FURTHER NEEDS.
--- NOTE | 2018-08-12 22:19 | NUR ---
PT ASSISTED TO VOID AT BEDSIDE IN URINAL, TOLERATED WELL, NO C/O SOB/CP, PT'S O2 SAT REAMINS 93-96% ON 4LNC WHEN STANDING, PT BACK TO BED, NO FURTHER REQUESTS, CALL LIGHT WITHIN REACH. FALL PRECAUTIONS IN PLACE.
--- NOTE | 2018-08-13 00:27 | NUR ---
PT RESTING IN BED, EYES CLOSED, BREATHS EVEN, UNLABORED, ON 4LNC, NO SIGNS OF SOB OR DISTRESS, O2 SAT 96%, CALL LIGHT WITHIN REACH. FALL PRECAUTIONS IN PLACE.
--- NOTE | 2018-08-13 00:46 | NUR ---
SHIFT ASSESSMENT COMPLETE, PT AOX4, APPROPRIATE, REMAINS ON 4LNC, O2 SAT 95%, NO C/O SOB/CP, PT C/O 2/10 PAIN IN HIS RIGHT SHOULDER REQUESTING PRN ACETAMINOPHEN, PT WAS ALSO NOTED TO HAVE A LOW GRADE TEMP OF 99.7, PT GIVEN PRN ACETAMINOPHEN PER EMAR, TOLERATED WELL. NO FURTHER REQUESTS AT THIS TIME, LS CLEAR, BT ACTIVE, HEART SOUNDS IRREGULAR, SCD'S ON, IV SL. FALL PRECAUTIONS IN PLACE. CALL LIGHT WITHIN REACH.
--- NOTE | 2018-08-13 01:40 | NUR ---
PT ASSISTED TO VOID AT BEDSIDE WITH URINAL, NO C/O SOB/CP, ON 4LNC, O2 SAT 95%, PT VOIDED 175 MLS OF CLEAR YELLOW URINE, BACK TO BED, CALL LIGHT WITHIN REACH.
--- NOTE | 2018-08-13 02:26 | NUR ---
PT RESTING IN BED, EYES CLOSED, BREATHS EVEN, UNLABORED, NO REQUESTS AT THIS TIME, ON 4LNC, NO SIGNS OF DISTRESS, O2 SAT 95%. CALL LIGHT WITHIN REACH.
--- NOTE | 2018-08-13 03:28 | NUR ---
PT RESTING IN BED, EYES CLOSED, BREATHS EVEN, UNLABORED, NO REQUESTS AT THIS TIME, CALL LIGHT WITHIN REACH, FALL PRECAUTIONS IN PLACE. ON 4LNC, O2 SAT 96%.
--- NOTE | 2018-08-13 04:51 | NUR ---
PT RESTING IN BED, EYES CLOSED, PT'S OXYGEN TITRATED DOWN TO 2LNC, O2 SAT 95%, RR 23, NO C/O SOB/CP, NO SIGNS OF DISTRESS, CALL LIGHT WITHIN REACH.
--- NOTE | 2018-08-13 05:06 | NUR ---
PT ASSISTED TO VOID WITH FIDEL RN, PT NOTED TO DESATURATE WHILE STANDING AND ON 2LNC TO 87%, PT BUMPED UP TO 4LNC UNTIL O2 SAT RECOVERED TO 94-95%, PT DENIED ANY SOB/CP WITH STANDING, PT'S O2 TITRATED DOWN TO 2LNC WHILE PT IS RESTING IN BED, O2 SAT IS 95%, RR 23, NO C/O SOB/CP, NO SIGNS OF DISCOMFORT. CALL LIGHT WITHIN REACH. IV FLUSHED, SL, SCD'S ON.
--- NOTE | 2018-08-13 07:27 | NUR ---
REPORT GIVEN TO DAY SHIFT RN, QUESTIONS ANSWERED, PT RESTING IN BED, ON 3LNC, O2 SAT 95%, EYES CLOSED, BREATHS EVEN, NO REQUESTS AT THIS TIME, CALL LIGHT WITHIN REACH. FALL PRECAUTIONS IN PLACE.
--- NOTE | 2018-08-13 07:45 | NUR ---
PT ASLEEP IN HIS BED WITHOUT ANY SIGNS OF DISCOMFORT OR PAIN. VS REMAIN STABLE. CALL LIGHT WITHIN REACH. WILL CONTINUE TO MONITOR AND WILL RETURN SOON FOR ASSESSMENT.
--- NOTE | 2018-08-13 08:15 | NUR ---
PT ASSISTED TO STAND AT THE SIDE OF HIS BED PER HIS REQUEST FOR URINATION. ASSESSMENT COMPLETED AD WELL. PT IS A/O X4 AND PLEASANT, CALM AND COOPERATIVE. HE DENIES ANY PAIN BUT STATES HE WANTS PRN TYLENOL FOR "SORENESS AND TO PREVENT PAIN" IN HIS RIGHT SHOULDER. RIGHT SHOULDER INCISION IS C/D/I. PT REMAINS ON 3 L/MIN O2 VIA NC. LUNGS ARE CLEAR EXCEPT SOME COURSE CRACKLES NOTED IN RLL. COUGH AND DEEP BREATHING COMPLETED- RT HAS JUST LEFT BEDSIDE WELL AND IS EDUCATION WAS COMPLETED WITH PT BY RT EL. BOWEL TONES ACTIVE. SALINE LOCKED. SCD ON AND IN PLACE. PT WAS STRONG ON HIS FEET- BUT I NOTICE PT HAS GENERALIZED TREMORS, MOSTLY IN ARMS AND HANDS. EDUCATION COMPLETED WITH PT. HE DENIES ANY NEEDS AT THIS TIME. VSS. CALL LIGHT WITHIN REACH. WILL CONTINUE TO MONITOR.
--- NOTE | 2018-08-13 09:40 | NUR ---
PT HAS BEEN ASSISTED TO AND FROM BATHROOM WITH STAND BY ASSISTANCE- PT HAD BM AND URINATED AGAIN. SOB/DYSPNEA NOTED WITH AMBULATION TO AND FROM BATHROOM. HE ATE MOST OF HIS OATMEAL. FAMILY MEMBERS AT THE BEDSIDE VISITING. PT STRONG ON HIS FEET BUT SOMEWHAT UNSTEADY. PT DENIES ANY NEEDS AT THIS TIME. SCHEDULED MEDICATIONS GIVEN INCLUDING LASIX. PT EDUCATION PROVIDED. CALL LIGHT WITHIN REACH NOW THAT PT IS BACK IN BED. WILL CONTINUE TO MONITOR.
--- NOTE | 2018-08-13 10:29 | NUR ---
STAND BY ASSIST AT THE SIDE OF THE BED WHILE PT STANDS TO URINATE AT THIS TIME AND ABOUT 20 MINUTES AGO WELL. URINE IS CLEAR, LIGHT YELLOW. BACK IN BED WITH FAMILY AT BEDSIDE VISITING HIM. CALL LIGHT WITHIN REACH. WILL CONTINUE TO MONITOR.
--- NOTE | 2018-08-13 11:25 | NUR ---
PT CONTINUES TO VOID FREQUENTLY POST LASIX ADMINISTRATION. HE DENIES ANY PAIN, AND HAS NO CONCERNS OR QUESTIONS AT THIS TIME. PT BACK IN BED. CALL LIGHT WITHIN REACH. WILL CONTINUE TO MONITOR.
--- NOTE | 2018-08-13 12:23 | NUR ---
ASSESSMENT COMPLETED AGAIN AT THIS TIME. BILATERAL COURSE CACKLES HEARD IN LUNG BASES . PT HAS BEEN UP TO SIDE OF BED MANY TIMES DUE TO FREQUENCY OF URINATION RELATED TO LASIX ADMINISTRATION THIS AM. PT'S AND DAUGHTER IN [place] REMAIN AT THE BEDSIDE VISITING. PT HAS BEEN WEANED DOWN TO 2 L/MIN O2 VIA NC AND IS MAINTAINING MID 90'S. PT C/O SLIGHT SOB BUT DENIES ANY PAIN, N/V. RIGHT SHOULDER INCISION CONTINUES WNL. PT DENIES ANY NEEDS TO BE MET AT THIS TIME. VS REMAIN STABLE. CALL LIGHT WITHIN REACH. WILL CONTINUE TO MONITOR.
--- NOTE | 2018-08-13 12:40 | NUR ---
DR. NAIK AT THE BEDSIDE. PT ALSO WEANED DOWN TO 1 L/MIN O2 VIA NC AT THIS TIME. WILL CONTINUE TO MONITOR HIS TOLERANCE OF THIS. PT AND FAMILY UPDATED ON PLAN OF CARE AND PLAN TO TRANSFER TO M/S UNIT TODAY. QUESTIONS ANSWERED. DENIES ANY NEEDS TO BE MET. CALL LIGHT WITHIN REACH. WILL CONTINUE TO MONITOR.
--- NOTE | 2018-08-13 13:43 | NUR ---
PT RESTING IN BED AT THIS TIME. HE DENIES ANY PAIN AND STATES HE'S COMFORTABLE. 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 UPDATED PT ON HIS PLAN TO TRANSFER TO ROOM 115 ON M/S WHEN STAFF IS ABLE TO RECEIVE HIM. HE DENIES ANY FURTHER NEEDS AT THIS TIME. CALL LIGHT WITHIN REACH. WILL CONTINUE TO MONITOR.
--- NOTE | 2018-08-13 13:53 | NUR ---
Medications reconciled using pharmacy records and patient interview. Note: patient takes two strengths of levothyroxine, 75mcg + 88mcg = 163mcg dose
--- NOTE | 2018-08-13 14:00 | NUR ---
PT URINATED 175 CC URINE INTO URINAL STANDING AT THE BEDSIDE. PT DENIES ANY PAIN. STATES HE'S COMFORTABLE AND LAYING BACK IN BED. CALL LIGHT WITHIN REACH. WILL CONTINUE TO MONITOR.
--- NOTE | 2018-08-13 14:27 | NUR ---
REPORT GIVEN TO RECEIVING RN RAYMOND AT THIS TIME.
--- NOTE | 2018-08-13 14:35 | NUR ---
PT TRANSFERED AT THIS TIME WITH ALL BELONGINGS TO ROOM 115 ON M/S UNIT. VS AND PT CONDITION STABLE FOR TRANSFER. TRANSFER COMPLETE.
--- NOTE | 2018-08-13 14:37 | NUR ---
Report received from KELIN Melchor. Pt arrives to room 115 alert and oriented x4, denies sob on 1lpnc and is satting at 97%, pt titrated down to .5lpnc and is maintaining o2 sat in mid 90's. respirations even and unlabored at rest. [id number]. assessment completed, slight crackles noted in bilat bases on expiration. VSS. Family at bedside. Call light and h20 in reach and pt denies needs/concerns at this time.
--- NOTE | 2018-08-13 15:59 | NUR ---
Pt resting supine in bed, eyes closed and respirations even and unlabored. Pt satting 96% on .5lpnc so o2 titrated off. Pt now maintaining sats between 92 to 94% on room air and denies sob. Pt also denies nasuea or pain. Pt requested and received blanket and temperature in room turned also turned up to 75 per his request. pt states he is comfortable and denies furhter needs or concerns. Call light and h20 in reach and pt agrees to use call light if symptoms develop and as needed.
--- NOTE | 2018-08-13 17:37 | NUR ---
PATIENT RESTING IN BED. VITAL SIGNS AND I&O DONE. CALL LIGHT WITHIN REACH. NO OTHER NEEDS AT THIS TIME
--- NOTE | 2018-08-13 18:19 | NUR ---
RECEIVED CALL FROM DR NAIK REGARDING A DOCUMENTED FLUID INTAKE OF 2000MLS. PT IS ON 1500ML FLUID RESTRICTION. ACCORDING TO WHITE BOARD PT HAS DRANK 200MLS OF FLUIDS SINCE ARRIVING TO MS FLOOR. CONSULTED WITH GILDA MINER AND THE DOCUMENTED INTAKE OF 2000MLS WAS VERIFIED TO BE AN ERROR AND PT ONLY HAD INTAKE OF 200MLS. PT REMAINS IN BED, RESTING SUPINE WITH RESPIRATIONS EVEN AND UNLABORED AT 18. PT DENIES SOB AT REST. CALL LIGHT AND H20 IN REACH AND PT DENIES HAVING ANY NEEDS OR CONCERNS.
--- NOTE | 2018-08-13 19:12 | NUR ---
SHIFT REPORT RECEIVED FROM DAYSHIFT KELIN ANDRADE AT BEDSIDE. PT RESTING IN BED, EYES CLOSED, RR WNL. CALL LIGHT IN REACH, NO DISTRESS NOTED.
--- NOTE | 2018-08-13 22:00 | NUR ---
ASSESSMENT COMPLETE, SCHEDULED MEDICATIONS GIVEN (SEE EMAR). DISCUSSED WITH DEPARTMENT EDITOR REGARDING SCHEDULED ELIQUIS PT HAD LOW PLATELET, AND H&H. DEPARTMENT EDITOR AGREED ADMINISTRATION WAS APPROPERIATE. OPSITE DRESSING TO RIGHT SHOULDER INTACT, WELL APPROXIMATED FROM SURGERY THAT OCCURED ON 08/09/[address] MONTANEZ. OLD DRAINAGE NOTED AT SITE OF APPROXIMATION, NO NEW DRAINAGE NOTED. PT DENIES PAIN AT THIS TIME. CMS INTACT IN EXTREMITIES X4. NO FURTHER NEEDS, CALL LIGHT IN REACH.
--- NOTE | 2018-08-14 00:04 | NUR ---
PT DENIES NEEDS, AWAKE WATCHING TELEVISION. RR WNL. CALL LIGHT IN REACH.
--- NOTE | 2018-08-14 01:27 | NUR ---
PT'S PULSE AND O2 DONE AND CHARTED.
--- NOTE | 2018-08-14 02:00 | NUR ---
ASSESSMENT COMPLETE, NO NEW CONCERNS. PT DENIES PAIN. PT AWAKE AND IS WATCHING TELEVISION. SURGICAL SITE WELL APPROXIMATED, OLD DRY DRAINAGE AT SITE APPEARS OLD. DRESSING INTACT. CMS INTACT PER EXTREMITIES X4. PT DENIES FURTHER NEEDS, CALL LIGHT IN REACH.
--- NOTE | 2018-08-14 04:42 | NUR ---
PT RESTING IN BED, EYES CLOSED, RR WNL. CALL LIGHT IN REACH. NO DISTRESS NOTED.
--- NOTE | 2018-08-14 05:02 | NUR ---
PT HAD A GOOD NIGHT. PT A/O, DENIED PAIN ALL SHIFT. VSS, PT ON RA, SPOT CHECKED THROUGHOUT SHIFT. DRESSING TO RIGHT SHOULDER WELL APPROXIMATED, DRESSING INTACT. CMS INTACT. PT SBA, USES CALL LIGHT APPROPERAITELY. HEART HEALTHY DIET, 1500 MLS FLUID RESTRICTION, TOLERATING WELL. NO NAUSEA THIS SHIFT. NO BM THIS SHIFT. BOARDERLINE FOR URINE OUTPUT.
--- NOTE | 2018-08-14 05:41 | NUR ---
SPOKE TO CAT SCAN TECH REGARDING PT'S THYROID DOSAGE. THIS RN SPOKE TO MARIPOSA IN TELEPHARMACY TO HAVE PT'S THYROID MEDICATION BE GIVEN IN 2 SEPERATE PILLS, ONE 75 MCG AND ONE 88 MCG THIS IS THE PT'S HOME ROUTINE. IN EMAR, DOSE WAS WRITTEN TO GIVE [id number] TABS OF 75 MCG. CAT SCAN TECH IN AGREEMENT.
--- NOTE | 2018-08-14 06:22 | NUR ---
SCHEDULED THYROID MEDICATION GIVEN. PT DENIES PAIN, BUT STATES, "I'LL TAKE THAT TYLENOL. I DON'T HAVE ANY PAIN RIGHT NOW, BUT I WANT TO STAY ON TOP OF IT". PRN TYLENOL GIVEN. FRESH WATER AT BEDSIDE. CALL LIGHT IN REACH.
--- NOTE | 2018-08-14 07:00 | NUR ---
REPORT RECEIVED FROM KELIN BAILEY. PT RESTING IN SEMIFOWLERS POSITION IN BED, RESPIRATIONS EVEN AND UNLABORED ON ROOM AIR; RR18. CALL LIGHT AND H2O IN REACH.
--- NOTE | 2018-08-14 09:37 | NUR ---
PT RESTING IN SEMIFOWLERS POSITION IN BED, ROOM AIR SAT 96% ON ROOM AIR, LSC AND VSS. ASSESSMENT COMPLETED, PT STATES "I'M READY TO GO HOME, I WAS READY YESTERDAY SO I REALLY HOPE I CAN BE DISCHARGED SOON". CALL LIGHT AND H2O IN REACH. PT TOLERATING 1500ML FLUID RESTRICTION WELL. NO EDEMA NOTED IN EXPTREMITIES. FAMILY AT BEDSIDE VISITING WITH PT. PT DENIES NEEDS OR FURTHER REQUESTS/CONCERNS. PT DENIES SOB, NAUSEA OR PAIN.
[2018-08-14] MEDS ORDERED: DOXYCYCLINE HY100 MG PO (11:06)
== END 2018-08-14 12:35 | disposition home or self-care (01) ==
LOC: ED 13:32 → CCU 13:33 → MS 08-13 14:49
PROVIDERS: ADMIT Internal Medicine
DX: I97.131 Postprocedural heart failure following other surgery (principal); I50.33 Acute on chronic diastolic (congestive) heart failure; I10 Essential (primary) hypertension; D72.829 Elevated white blood cell count, unspecified; R59.0 Localized enlarged lymph nodes; E03.9 Hypothyroidism, unspecified; I48.2 Chronic atrial fibrillation; K21.9 Gastro-esophageal reflux disease without esophagitis; N40.0 Benign prostatic hyperplasia without lower urinary tract symptoms; E78.5 Hyperlipidemia, unspecified; E79.0 Hyperuricemia without signs of inflammatory arthritis and tophaceous disease; I69.922 Dysarthria following unspecified cerebrovascular disease; Z96.611 Presence of right artificial shoulder joint; Z79.02 Long term (current) use of antithrombotics/antiplatelets; Z79.891 Long term (current) use of opiate analgesic; Z79.899 Other long term (current) drug therapy; Z88.1 Allergy status to other antibiotic agents; Z88.8 Allergy status to other drugs, medicaments and biological substances; Z57.4 Occupational exposure to toxic agents in agriculture
CPT/HCPCS: 36415; 71045; 71260; 80048; 80053; 80162; 81001; 83735; 83880; 84484; 85025; 87502; 93005; 93010; 96360; 96374; 99285-25; G0378; J7030; Q9967